=== PATIENT | male | born 1950 | race Two or more races ===

== ENCOUNTER → 2016-09-04 | Outpatient (CLI) | payer OTHER | END | disposition home or self-care (01) | LOC: HKI 13:55 | PROVIDERS: ATTEND Orthopaedic Surgery | DX: M25.561 Pain in right knee (principal); M25.562 Pain in left knee; M17.0 Bilateral primary osteoarthritis of knee | CPT/HCPCS: G0463 ==

== ENCOUNTER → 2016-10-23 | Outpatient (CLI) | payer OTHER ==
--- NOTE | 2016-10-23 12:38 | RADRPT ---
PROCEDURE: Left knee radiographs. CLINICAL INDICATION: Left knee pain. TECHNIQUE: Four views. Weight bearing. Frontal, lateral, oblique, and patellar view. COMPARISON: No prior studies are available for comparison. FINDINGS: There is no fracture or dislocation. The soft tissues are normal. There are degenerative changes with osteophytes arising from all 3 joint compartment margins. There is medial joint compartment narrowing, subarticular sclerosis, and mild deformity. There is no lytic or blastic lesion. There is no radiopaque foreign body. IMPRESSION: 1. Moderate to severe degenerative changes of the left knee. 2. No acute abnormality. RPTAT: QQ .Adebayo Kevin MD, MD Date Time Electronically viewed and signed by .Adebayo Kevin MD, on 10/23/2016 12:37 .R/
--- NOTE | 2016-10-23 12:39 | RADRPT ---
PROCEDURE: Limited x-ray of both lower extremities. CLINICAL INDICATION: Bilateral leg pain. TECHNIQUE: Single frontal view of both lower extremities was obtained from the hips to the calves. COMPARISON: None. FINDINGS: The hips are normal. There are degenerative changes of the both knees with medial joint compartment narrowing, subarticular sclerosis, and mild deformity. IMPRESSION: 1. Moderate to severe degenerative changes of both knees. RPTAT: QQ .Adebayo Kevin MD, MD Date Time Electronically viewed and signed by .Adebayo Kevin MD, MD on 10/23/2016 12:39 .R/
== END | disposition home or self-care (01) ==
LOC: HKI 09:44
PROVIDERS: ATTEND Orthopaedic Surgery
DX: Z01.818 Encounter for other preprocedural examination (principal); M17.0 Bilateral primary osteoarthritis of knee
CPT/HCPCS: 77073

== ENCOUNTER 2016-11-03 11:44 | Inpatient (IN) | payer OTHER ==
[2016-11-03] VITALS (9 sets, daily range): BP systolic 117–162; BP diastolic 72–96; PULSE 80–106; RESP 11–18; Ht 170.2 cm; Wt 99.0 kg
[~2016-11-03] VITALS: Ht 170.2 cm; Wt 99.0 kg
[2016-11-03] MEDS ORDERED: ATOR40TA68 PO (15:40)
[2016-11-03] MEDS ORDERED: CARV3.1260 PO (15:40)
[2016-11-03] MEDS ORDERED: CHOL100062 PO (15:40)
[2016-11-03] MEDS ORDERED: CLOP75TA4 PO (15:40)
[2016-11-03] MEDS ORDERED: FER325 PO (15:40)
[2016-11-03] MEDS ORDERED: LOSA25TA5 PO (15:40)
[2016-11-03] MEDS ORDERED: ASPI-664 PO (15:40)
[2016-11-03] MEDS ORDERED: CYAN100T PO (15:40)
[2016-11-03] MEDS ORDERED: GLIP5TAB13 PO (15:40)
[2016-11-03] MEDS ORDERED: METF500T4 PO (15:40)
[2016-11-03] MEDS ORDERED: HYD25 PO (15:40)
[2016-11-03] MEDS ORDERED: oxyCODONE (CR) 10 MG TAB [oxyCONTIN] X1 DOSE PO ONE (17:00)
[2016-11-03] MEDS ORDERED: VANCOMYCIN 1 GM/NS 250 ML X1 BEFORE INCISION IVPB ONE (17:00)
[2016-11-03] MEDS ORDERED: CELECOXIB 400 MG PO X1 DOSE PO ONE (17:00)
[2016-11-03] MEDS ORDERED: TRANEXAMIC ACID 1,000 MG in SOD CHLORIDE 0.9% 90 ML IV ONE (17:00)
[2016-11-03] MEDS ORDERED: traMADOL 50 MG TAB X 1 DOSE PO ONE (17:00)
[2016-11-03] MEDS ORDERED: PAIN COCKTAIL - VANCOMYCIN IRR ONE ×7 (17:00)
[2016-11-03] MEDS: LACTATED RINGER'S 1,000 ML IV SCH ×2 (17:00→23:47)
[2016-11-03] MEDS ORDERED: PREGABALIN 300 MG PO X1 PO ONE (17:00)
[2016-11-03] MEDS ORDERED: TRANEXAMIC ACID in SOD CHLORIDE 0.9% 100 ML FOR INTRAOP IVPB ONE (19:00)
--- NOTE | 2016-11-03 19:12 | HPN ---
Date/Time of Note Date/Time of Note DATE: 11/03/16 TIME: 19:11 Interval H&P Admission Note Pt. seen H&P reviewed: No system changes No changes from H&P on 10/20/16 by NIDA Stahl MD Nov 03, 2016 19:12
[2016-11-03] MEDS ORDERED: POLYMYXIN B 500000 UNIT INJ ONE (19:14)
[2016-11-03] MEDS ORDERED: VANCOMYCIN 1 GM INJ ONE ×3 (19:14→21:58)
[2016-11-03] MEDS ORDERED: ESMOLOL 10 ML ONE (19:15)
[2016-11-03] MEDS ORDERED: FENTAnyl 50 MCG/ML VIAL ONE (19:47)
[2016-11-03] MEDS ORDERED: MIDAZOLAM 1 MG/ML 2 ML INJ ONE (19:47)
[2016-11-03] MEDS ORDERED: BUPIVACAINE LIPOSOME/PF 266 MG/20 ML VIAL INFIL ONE (20:00)
[2016-11-03] MEDS ORDERED: METOCLOPRAMIDE 10 MG INJ ONE (20:13)
[2016-11-03] MEDS ORDERED: CEFAZOLIN 1 GM INJ ONE (20:13)
[2016-11-03] MEDS ORDERED: LIDOCAINE 2% (SDV) 5 ML INJ ONE (20:13)
[2016-11-03] MEDS ORDERED: ONDANSETRON 4 MG INJ ONE (20:13)
[2016-11-03] MEDS ORDERED: FAMOTIDINE 20 MG INJ ONE (20:13)
[2016-11-03] MEDS ORDERED: PROPOFOL 100 ML ONE (20:13)
[2016-11-03] MEDS ORDERED: EXPAREL NOTE (BUPIVICAINE LIPOSOMAL) XX SCH (20:30)
[2016-11-03] MEDS ORDERED: BACITRACIN 50000 UNITS INJ IRR ONE (21:14)
[2016-11-03] MEDS ORDERED: DIPHENHYDRAMINE 50 MG INJ IV PRN (21:30)
[2016-11-03] MEDS ORDERED: MEPERIDINE 25 MG INJ IV PRN (21:30)
[2016-11-03] MEDS ORDERED: FENTAnyl 50 MCG/ML VIAL IV PRN (21:30)
[2016-11-03] MEDS ORDERED: PROCHLORPERAZINE 10 MG INJ IV PRN (21:30)
[2016-11-03] MEDS ORDERED: ONDANSETRON 4 MG INJ IV PRN ×2 (21:30→23:30)
[2016-11-03] MEDS ORDERED: HYDROmorphONE (0.2 MG/ML) 10ML SYG IV PRN (21:30)
[2016-11-03] MEDS ORDERED: TOBRAMYCIN 1.2 GM POWDER ONE (21:58)
--- NOTE | 2016-11-03 23:13 | OPR ---
Date/Time of Note Date/Time of Note DATE: 11/03/16 TIME: 23:11 Operative Report Free Text/Dictation Dictation # [id number] Preoperative Diagnosis Left Knee OA Postoperative Diagnosis Same Operation/Procedure Performed Left TKA Surgeon: NIDA HERNANDEZ MD mobile unit assistant: ELISA JEWELL PA-C Anesthesia: general, spinal Estimated Blood Loss: 50 - 100 ml's Specimens Bone and soft tissue Grafts/Implants Depuy Attune TKA Complications Non-displaced fracture lateral condyle fixed with two 7.3 cannulated Synthes screws with washers NIDA HERNANDEZ MD Nov 03, 2016 23:12
--- NOTE | 2016-11-03 23:17 | PN ---
Date/Time of Note Date/Time of Note DATE: 11/03/16 TIME: 23:14 Assessment/Plan Lines/Catheters IV Catheter Type (from Nrsg): Peripheral IV Assessment/Plan Assessment/Plan Stable in PACU, s/p left TKA -continue Ancef x 2 days -pain meds as needed -ASA/SCDs -OOB with PT - TDWB -check AM labs -monitor drain -d/c gong in AM XR of the left knee is pending at this time Subjective 24 Hr Interval Summary Stable in PACU. Denies pain. Moving all extremities. Drowsy from anesthesia. Exam/Review of Systems Vital Signs Vitals Vital Signs Date Time Temp Pulse Resp B/P Pulse Ox O2 Delivery O2 Flow Rate FiO2 11/03/16 23:11 98.8 11/03/16 15:41 106 18 117/72 98 Room Air Exam Free Text/Dictation Hemovac: minimal Dressing dry Incision clean, dry, and intact without redness or drainage Thigh soft 5/5 Quadriceps, Tibialis Anterior, EHL, Gastroc, Soleus, Peroneals Normal sensation Palpable DT/PT, CR <2 sec No distal edema ELISA JEWELL PA-C Nov 03, 2016 23:16
[2016-11-03 23:24] LABS: HEMOGLOBIN 10.8 g/dl (14.0-18.0)
[2016-11-03] MEDS ORDERED: CEFAZOLIN 2 GM/50 ML (PMX) 50 ML IVPB ONE (23:28)
[2016-11-03] MEDS ORDERED: ASPIRIN (EC) 325 MG TAB PO ONE ×2 (23:28→23:30)
[2016-11-03] MEDS ORDERED: NACL 0.9% 3 ML SYG IV SCH (23:30)
[2016-11-03] MEDS ORDERED: BISACODYL 10 MG SUPP PR PRN (23:30)
[2016-11-03] MEDS ORDERED: NA PHOSPHATE/BIPHOS 133 ML ENEMA PR PRN (23:30)
[2016-11-03] MEDS ORDERED: DIPHENHYDRAMINE 25 MG CAP PO PRN (23:30)
[2016-11-03] MEDS: CEFAZOLIN 2 GM/50 ML (PMX) 50 ML IVPB SCH (23:47)
[2016-11-04] VITALS (8 sets, daily range): BP systolic 113–167; BP diastolic 58–92; PULSE 74–82; RESP 11–24
[2016-11-04 00:03] LABS: CALCIUM 8.8 mg/dl (8.4-10.2); CREATININE 1.02 mg/dl (0.61-1.24); POTASSIUM 3.5 mmol/L (3.5-5.1)
[2016-11-04 00:42] LABS: ADD UMIC NO; UR ASCORBIC ACID NEGATIVE (NEGATIVE); UR BILIRUBIN (Dip) NEGATIVE (NEGATIVE); UR BLOOD (Dip) NEGATIVE (NEGATIVE); UR CLARITY SLIGHTLY CLOUDY (CLEAR); UR COLOR YELLOW (YELLOW); UR GLUCOSE (Dip) NEGATIVE (NEGATIVE); UR KETONES (Dip) NEGATIVE (NEGATIVE); UR LEUKOCYTE ESTERASE (Dip) NEGATIVE Leu/ul (NEGATIVE); UR NITRITE (Dip) NEGATIVE (NEGATIVE); UR RBC 5 /HPF (0-5); UR SPECIFIC GRAVITY (Dip) 1.017 (1.003-1.030); UR TOTAL PROTEIN (Dip) NEGATIVE (NEGATIVE); UR UROBILINOGEN (Dip) NEGATIVE (NEGATIVE)
[2016-11-04] MEDS: traMADol 50 MG TAB PO SCH ×4 (01:30→17:44)
[2016-11-04] MEDS: DOCUSATE SODIUM 100 MG CAP PO SCH ×3 (01:30→20:37)
--- NOTE | 2016-11-04 01:49 | RADRPT ---
PROCEDURE: X-ray right knee CLINICAL INDICATION: Postoperative for right knee arthroplasty. TECHNIQUE: 2 views of the left knee COMPARISON: None FINDINGS: Left knee arthroplasty with patellar resurfacing; and fracture of the distal femoral metaphysis, wit h screw fixators at the distal femoral metaphysis. No evident hardware complication. Post surgical air and fluid over the knee. No acute fracture otherwise identified. IMPRESSION: 1. Left knee arthroplasty with patellar resurfacing. 2. Fracture of the distal femoral metaphysis, with screw fixators. 3. No hardware complication identified. RPTAT: UU Physician Gina Date Time Electronically viewed and signed by Physician Gina on 11/04/2016 01:49 RS/
[2016-11-04] MEDS ORDERED: TRANEXAMIC ACID IVPB ONE ×2 (02:30→05:30)
[2016-11-04] MEDS ORDERED: SOD CHLORIDE 0.9% IVPB ONE ×2 (02:30→05:30)
[2016-11-04] MEDS: LACTATED RINGER'S 1,000 ML IV SCH ×2 (02:38→07:09)
[2016-11-04] MEDS: HYDROCODONE/APAP (7.5/325) TAB PO PRN ×2 (04:45→20:37)
[2016-11-04 05:37] LABS: HEMATOCRIT 28.7 % (42.0-52.0); HEMOGLOBIN 9.8 g/dl (14.0-18.0)
[2016-11-04] MEDS: PANTOPRAZOLE (EC) 40 MG TAB PO SCH ×2 (05:37→17:45)
[2016-11-04 06:32] LABS: CALCIUM 8.7 mg/dl (8.4-10.2); CREATININE 1.1 mg/dl (0.61-1.24); POTASSIUM 4.2 mmol/L (3.5-5.1)
[2016-11-04 07:57] LABS: ADD UMIC YES; UR ASCORBIC ACID NEGATIVE (NEGATIVE); UR BILIRUBIN (Dip) NEGATIVE (NEGATIVE); UR BLOOD (Dip) 2+ mg/dL (NEGATIVE); UR CLARITY SLIGHTLY CLOUDY (CLEAR); UR COLOR YELLOW (YELLOW); UR GLUCOSE (Dip) 1+ mg/dL (NEGATIVE); UR KETONES (Dip) TRACE mg/dL (NEGATIVE); UR LEUKOCYTE ESTERASE (Dip) NEGATIVE Leu/ul (NEGATIVE); UR NITRITE (Dip) NEGATIVE (NEGATIVE); UR RBC 90 /HPF (0-5); UR SPECIFIC GRAVITY (Dip) 1.028 (1.003-1.030); UR TOTAL PROTEIN (Dip) 1+ mg/dl (NEGATIVE); UR UROBILINOGEN (Dip) NEGATIVE (NEGATIVE)
[2016-11-04] MEDS: CEFAZOLIN 2 GM/50 ML (PMX) 50 ML IVPB SCH ×3 (08:01→23:55)
--- NOTE | 2016-11-04 08:50 | CONS ---
Date/Time of Note Date/Time of Note DATE: 11/04/16 TIME: 08:48 Assessment/Plan Assessment/Plan Additional Assessment/Plan 1. Post op left knee replacement. 2. Known CAD, stable 3. DM, meds rev 4. Labs rev Consultation Date/Type/Reason Admit Date/Time Nov 03, 2016 at 13:48 Initial Consult Date Detailed Summary Respiratory: No shortness of breath Cardiovascular: No chest pain, No lightheadedness Gastrointestinal: no complaints Genitourinary: no complaints Musculoskeletal: bone/joint pain (mild left knee pain) Exam/Review of Systems Vital Signs Vitals Vital Signs Date Time Temp Pulse Resp B/P Pulse Ox O2 Delivery O2 Flow Rate FiO2 11/04/16 07:22 98.7 80 18 113/58 100 11/04/16 01:30 Nasal Cannula 2.0 Intake and Output 11/03/16 11/03/16 11/04/16 15:00 23:00 07:00 Intake Total 2600 ml 519 ml Output Total 520 ml 600 ml Balance 2080 ml -81 ml Exam Neck: No jvd Respiratory: clear to auscultation Cardiovascular: regular rate and rhythm Gastrointestinal: soft Extremities: No edema (and no calf tend) Results Result Diagram: 11/04/16 0505 11/04/16 0505 Results 24 hrs Laboratory Tests Test 11/03/16 15:01 11/03/16 17:27 11/03/16 19:35 11/03/16 23:14 Bedside Glucose 83 94 96 Urine Color YELLOW Urine Clarity SLIGHTLY CLOUDY A Urine pH 5.0 Urine Specific [place] 1.017 Urine Ketones NEGATIVE Urine Nitrite NEGATIVE Urine Bilirubin NEGATIVE Urine Urobilinogen NEGATIVE Urine Leukocyte Esterase NEGATIVE Urine Microscopic RBC 5 Urine Microscopic WBC 1 Urine Hemoglobin NEGATIVE Urine Glucose NEGATIVE Urine Total Protein NEGATIVE Test 11/03/16 23:18 11/03/16 23:20 11/04/16 05:05 11/04/16 06:30 Hemoglobin 10.8 L 9.8 L Hematocrit 32.0 L 28.7 L Sodium Level 132 L 133 L Potassium Level 3.5 4.2 Chloride Level 101 103 Carbon Dioxide Level 26 27 Anion Gap 9 7 L Blood Urea Nitrogen 22 H 24 H Creatinine 1.02 1.10 Glucose Level 98 184 Calcium Level 8.8 8.7 Bedside Glucose 116 Urine Color YELLOW Urine Clarity SLIGHTLY CLOUDY A Urine pH 5.0 Urine Specific [place] 1.028 Urine Ketones TRACE A Urine Nitrite NEGATIVE Urine Bilirubin NEGATIVE Urine Urobilinogen NEGATIVE Urine Leukocyte Esterase NEGATIVE Urine Microscopic RBC 90 H Urine Microscopic WBC 4 Urine Hemoglobin 2+ H Urine Glucose 1+ H Urine Total Protein 1+ H Medications Medications Current Medications Lactated Ringer's (Lr) 1,000 ml @ 100 mls/hr Q10H IV Last administered on 11/04 02:38; Admin Dose 100 MLS/HR; Start 11/03/16 at 17:00 Miscellaneous Information 1 ea NOTE XX ; Start 11/03/16 at 20:30; Stop 11/07/16 at 20:29 Atorvastatin Calcium (Lipitor) 40 mg QHS PO ; Start 11/04/16 at 21:00 Carvedilol (Coreg) 3.125 mg BID PO ; Start 11/04/16 at 09:00 Ferrous Sulfate (Ferrous Sulfate (Ec)) 325 mg DAILY PO ; Start 11/04/16 at 09:00 Hydrochlorothiazide (Hydrochlorothiazide) 25 mg DAILY PO ; Start 11/04/16 at 09: 00 Losartan Potassium 25 mg 25 mg DAILY PO ; Start 11/04/16 at 09:00 Lactated Ringer's (Lr) 1,000 ml @ 125 mls/hr Q8H IV Last administered on 23:47; Admin Dose 125 MLS/HR; Start 11/03/16 at 23:09 Tramadol HCl (Ultram) 50 mg Q6 PO Last administered on 11/04/16 05:38; Admin Dose 50 MG; Start 11/03/16 at 12:00; Stop 11/06/16 at 11:59 Hydromorphone HCl 1 mg 1 mg Q3H PRN IV PAIN LEVEL 8-10; Start 11/03/16 at 23:30 Cefazolin Sodium/ Dextrose (Ancef 2 Gm/50 ml (Pmx)) 50 ml @ 100 mls/hr Q8H IVPB Last administered on 11/04/16 08:01; Admin Dose 100 MLS/HR; Start at 23:30; Stop 11/05/16 at 15:59 Ondansetron HCl (Zofran Inj) 4 mg Q6H PRN IV NAUSEA AND/OR VOMITING; Start 03/12 at 23:30 Bisacodyl (Dulcolax Supp) 10 mg Q12H PRN [place] CONSTIPATION; Start 11/03/16 at 23: 30 Magnesium Hydroxide (Milk Of Mag) 30 ml BID PRN PO CONSTIPATION; Start at 23:30 Sodium Biphosphate/ Sodium Phosphate (Fleet Enema) 133 ml DAILY PRN [place] CONSTIPATION; Start 11/03/16 at 23:30 Docusate Sodium (Colace) 100 mg BID PO ; Start 11/03/16 at 21:00 Diphenhydramine HCl (Benadryl) 25 mg Q6H PRN PO PRURITUS; Start 11/03/16 at 23: 30 Acetaminophen/ Hydrocodone Bitart ([place] (7.5-325)) 1 tab Q4H PRN PO PAIN LEVEL 1-3; Start 11/03/16 at 23:30 Acetaminophen/ Hydrocodone Bitart ([place] (7.5-325)) 2 tab Q4H PRN PO PAIN LEVEL 4-7 Last administered on 11/04/16 04:45; Admin Dose 2 TAB; Start at 23:30 Aspirin (Ecotrin) 325 mg BID PO ; Start 11/04/16 at 09:00 Pantoprazole (Protonix Tab) 40 mg BID@06,18 PO Last administered on 11/04/16 05:37; Admin Dose 40 MG; Start 11/04/16 at 06:00 Pregabalin (Lyrica) 50 mg BID PO ; Start 11/04/16 at 09:00 DEANDRE GRAF MD Nov 04, 2016 08:50
[2016-11-04] MEDS ORDERED: DEXTROSE 50% 50 ML SYRINGE IV PRN ×2 (09:00)
[2016-11-04] MEDS ORDERED: GLUCOSE GEL 15 GRAM TUBE BUCCAL PRN (09:00)
[2016-11-04] MEDS ORDERED: GLUCAGON 1 MG INJ IM PRN (09:00)
[2016-11-04] MEDS ORDERED: GLUCOSE GEL 15 GRAM TUBE PO PRN ×2 (09:00)
--- NOTE | 2016-11-04 09:06 | PN ---
Date/Time of Note Date/Time of Note DATE: 11/04/16 TIME: 09:03 Assessment/Plan Lines/Catheters IV Catheter Type (from Nrsg): Peripheral IV Salas in Place (from Nrsg): Yes Assessment/Plan Assessment/Plan Stable POD #1, s/p left TKA with perioperative femur fracture -continue Ancef until drain removed -pain meds as needed -ASA/SCDs BLE for DVT prophylaxis -OOB with PT - TDWB -check AM labs -monitor drain -d/c planning. Will plan to go to home in [facility] upon discharge Subjective 24 Hr Interval Summary No acute overnight events. Denies significant pain. Did not start PT yesterday. Understands that he will be TDWB for 6 weeks post-operatively. VSS, afebrile. Will plan to go home upon discharge. Exam/Review of Systems Vital Signs Vitals Vital Signs Date Time Temp Pulse Resp B/P Pulse Ox O2 Delivery O2 Flow Rate FiO2 11/04/16 07:22 98.7 80 18 113/58 100 11/04/16 01:30 Nasal Cannula 2.0 Intake and Output 11/03/16 11/03/16 11/04/16 14:59 22:59 06:59 Intake Total 2600 ml 519 ml Output Total 520 ml 600 ml Balance 2080 ml -81 ml Exam Free Text/Dictation Hemovac: 180cc Dressing dry Incision clean, dry, and intact without redness or drainage Thigh soft 5/5 Quadriceps, Tibialis Anterior, EHL, Gastroc, Soleus, Peroneals Normal sensation Palpable DT/PT, CR <2 sec No distal edema Results Result Diagram: 11/04/16 0505 11/04/16 0505 ELISA JEWELL PA-C Nov 04, 2016 09:05
[2016-11-04] MEDS: HYDROCHLOROTHIAZIDE 25 MG TAB PO SCH (09:24)
[2016-11-04] MEDS: FERROUS SULFATE (EC) 325 MG TAB PO SCH (09:27)
[2016-11-04] MEDS: ASPIRIN (EC) 325 MG TAB PO SCH ×2 (09:29→20:37)
[2016-11-04] MEDS: PREGABALIN 50 MG CAP PO SCH ×2 (09:30→20:37)
[2016-11-04] MEDS: LOSARTAN 25 MG TAB PO SCH (10:08)
[2016-11-04] MEDS: SOD CHLORIDE 0.9% 1,000 ML IV SCH ×2 (10:09→22:25)
--- NOTE | 2016-11-04 10:41 | RADRPT ---
PROCEDURE: RF Left Knee CLINICAL INDICATION: Intraoperative localization for left knee replacement procedure. TECHNIQUE: Two x-ray images were obtained intraoperatively during a left knee prosthesis placement procedure. COMPARISON: 11/02/2016 FINDINGS: 2 x-ray images were obtained intraoperatively for localization during a left knee prosthesis placeme nt procedure. The procedure was performed by Dr. Candelaria. Images were obtained for localization intr aoperatively. Surgical hardware is seen to be in place including 2 threaded screws through the dista l left femur with a fracture seen through the lateral cortex. A sponge marker is seen posterior to t he patella on the lateral projection. Total fluoroscopy time was 0.3 minutes. IMPRESSION: Xray images obtained intraoperatively for localization during a left knee prosthesis placement proce durosvaldo. Physician Edel Date Time Electronically viewed and signed by Physician Edel on 11/04/2016 10:41 /
[2016-11-04] MEDS: INSULIN ASPART [NOVOLOG] 3 ML PEN SC SCH ×2 (12:53→17:49)
[2016-11-04] MEDS: metFORMIN 500 MG TAB PO SCH (17:44)
[2016-11-04] MEDS: ATORVASTATIN 40 MG TAB PO SCH (20:37)
--- NOTE | 2016-11-04 23:21 | CONS ---
Date/Time of Note Date/Time of Note DATE: 11/04/16 TIME: 23:18 Assessment/Plan Assessment/Plan Chief Complaint/Hosp Course s/p TKA h/o CAD h/o old [place], ICM DM2 - cont asa - cont statin = cont coreg - pt/ot, pain mgmt per ortho Problems: Consultation Date/Type/Reason Admit Date/Time Nov 03, 2016 at 13:48 Referring Provider: DEANDRE GRAF MD Respiratory: No shortness of breath Cardiovascular: No chest pain, No lightheadedness Gastrointestinal: no complaints Genitourinary: no complaints Musculoskeletal: bone/joint pain (mild left knee pain) Social History Smoking Status: Never smoker Exam/Review of Systems Vital Signs Vitals Vital Signs Date Time Temp Pulse Resp B/P Pulse Ox O2 Delivery O2 Flow Rate FiO2 11/04/16 20:24 98.1 84 18 116/60 95 11/04/16 01:30 Nasal Cannula 2.0 Intake and Output 11/03/16 11/03/16 11/04/16 15:00 23:00 07:00 Intake Total 2600 ml 519 ml Output Total 520 ml 600 ml Balance 2080 ml -81 ml Results Result Diagram: 11/04/16 0505 11/04/16 0505 Results 24 hrs Laboratory Tests Test 11/03/16 23:20 11/04/16 05:05 11/04/16 06:30 11/04/16 08:54 Bedside Glucose 116 187 Hemoglobin 9.8 L Hematocrit 28.7 L Sodium Level 133 L Potassium Level 4.2 Chloride Level 103 Carbon Dioxide Level 27 Anion Gap 7 L Blood Urea Nitrogen 24 H Creatinine 1.10 Glucose Level 184 Calcium Level 8.7 Urine Color YELLOW Urine Clarity SLIGHTLY CLOUDY A Urine pH 5.0 Urine Specific [place] 1.028 Urine Ketones TRACE A Urine Nitrite NEGATIVE Urine Bilirubin NEGATIVE Urine Urobilinogen NEGATIVE Urine Leukocyte Esterase NEGATIVE Urine Microscopic RBC 90 H Urine Microscopic WBC 4 Urine Hemoglobin 2+ H Urine Glucose 1+ H Urine Total Protein 1+ H Test 11/04/16 12:37 11/04/16 17:41 Bedside Glucose 168 193 Medications Medications Current Medications Miscellaneous Information 1 ea NOTE XX ; Start 11/03/16 at 20:30; Stop 11/07/16 at 20:29 Atorvastatin Calcium (Lipitor) 40 mg QHS PO Last administered on 11/04/16t 20: 37; Admin Dose 40 MG; Start 11/04/16 at 21:00 Carvedilol (Coreg) 3.125 mg BID PO Last administered on 11/04/16 20:37; Admin Dose 3.125 MG; Start 11/04/16 at 09:00 Ferrous Sulfate (Ferrous Sulfate (Ec)) 325 mg DAILY PO Last administered on 09:27; Admin Dose 325 MG; Start 11/04/16 at 09:00 Hydrochlorothiazide (Hydrochlorothiazide) 25 mg DAILY PO Last administered on 09:24; Admin Dose 25 MG; Start 11/04/16 at 09:00 Losartan Potassium (Cozaar) 25 mg DAILY PO Last administered on 11/04/16 10:08 ; Admin Dose 25 MG; Start 11/04/16 at 09:00 Tramadol HCl (Ultram) 50 mg Q6 PO Last administered on 11/04/16 17:44; Admin Dose 50 MG; Start 11/03/16 at 12:00; Stop 11/06/16 at 11:59 Hydromorphone HCl 1 mg 1 mg Q3H PRN IV PAIN LEVEL 8-10; Start 11/03/16 at 23:30 Cefazolin Sodium/ Dextrose (Ancef 2 Gm/50 ml (Pmx)) 50 ml @ 100 mls/hr Q8H IVPB Last administered on 11/04/16 15:44; Admin Dose 100 MLS/HR; Start at 23:30; Stop 11/05/16 at 15:59 Ondansetron HCl (Zofran Inj) 4 mg Q6H PRN IV NAUSEA AND/OR VOMITING; Start 03/12 at 23:30 Bisacodyl (Dulcolax Supp) 10 mg Q12H PRN [place] CONSTIPATION; Start 11/03/16 at 23: 30 Magnesium Hydroxide (Milk Of Mag) 30 ml BID PRN PO CONSTIPATION; Start at 23:30 Sodium Biphosphate/ Sodium Phosphate (Fleet Enema) 133 ml DAILY PRN [place] CONSTIPATION; Start 11/03/16 at 23:30 Docusate Sodium (Colace) 100 mg BID PO Last administered on 11/04/16 20:37; Admin Dose 100 MG; Start 11/03/16 at 21:00 Diphenhydramine HCl (Benadryl) 25 mg Q6H PRN PO PRURITUS; Start 11/03/16 at 23: 30 Acetaminophen/ Hydrocodone Bitart ([place] (7.5-325)) 1 tab Q4H PRN PO PAIN LEVEL 1-3 Last administered on 11/04/16 20:37; Admin Dose 1 TAB; Start at 23:30 Acetaminophen/ Hydrocodone Bitart ([place] (7.5-325)) 2 tab Q4H PRN PO PAIN LEVEL 4-7 Last administered on 11/04/16 04:45; Admin Dose 2 TAB; Start at 23:30 Aspirin (Ecotrin) 325 mg BID PO Last administered on 11/04/16 20:37; Admin Dose 325 MG; Start 11/04/16 at 09:00 Pantoprazole (Protonix Tab) 40 mg BID@06,18 PO Last administered on 11/04/16 17:45; Admin Dose 40 MG; Start 11/04/16 at 06:00 Pregabalin 50 mg 50 mg BID PO Last administered on 11/04/16 20:37; Admin Dose 50 MG; Start 11/04/16 at 09:00 Sodium Chloride (NS) 1,000 ml @ 80 mls/hr [id number] IV Last administered on 11/04 22:25; Admin Dose 80 MLS/HR; Start 11/04/16 at 09:00 Miscellaneous Information 1 ea NOTE XX ; Start 11/04/16 at 09:00 Glucose (Glutose) 15 gm Q15M PRN PO DECREASED GLUCOSE; Start 11/04/16 at 09:00 Glucose (Glutose) 22.5 gm Q15M PRN PO DECREASED GLUCOSE; Start 11/04/16 at 09: 00 Dextrose (D50w Syringe) 25 ml Q15M PRN IV DECREASED GLUCOSE; Start 11/04/16 at 09:00 Dextrose (D50w Syringe) 50 ml Q15M PRN IV DECREASED GLUCOSE; Start 11/04/16 at 09:00 Glucagon (Glucagen) 1 mg Q15M PRN IM DECREASED GLUCOSE; Start 11/04/16 at 09:00 Glucose (Glutose) 15 gm Q15M PRN BUCCAL DECREASED GLUCOSE; Start 11/04/16 at 09 :00 KALEY SOSA Nov 04, 2016 23:20
[2016-11-05] MEDS: traMADol 50 MG TAB PO SCH ×4 (00:28→19:53)
[2016-11-05] MEDS: HYDROCODONE/APAP (7.5/325) TAB PO PRN ×3 (03:44→20:35)
[2016-11-05] MEDS: PANTOPRAZOLE (EC) 40 MG TAB PO SCH ×2 (06:09→19:49)
[2016-11-05 06:27] LABS: HEMATOCRIT 28.1 % (42.0-52.0); HEMOGLOBIN 9.3 g/dl (14.0-18.0)
[2016-11-05 06:54] LABS: CALCIUM 8.2 mg/dl (8.4-10.2); CREATININE 0.97 mg/dl (0.61-1.24); POTASSIUM 3.5 mmol/L (3.5-5.1)
[2016-11-05] MEDS: metFORMIN 500 MG TAB PO SCH ×2 (08:23→19:48)
[2016-11-05] MEDS: CEFAZOLIN 2 GM/50 ML (PMX) 50 ML IVPB SCH ×2 (08:24→18:05)
[2016-11-05] MEDS: HYDROmorphONE 1 MG/ML SYG IV PRN ×3 (08:25→17:30)
[2016-11-05] MEDS: HYDROCHLOROTHIAZIDE 25 MG TAB PO SCH (09:00)
[2016-11-05 09:05] VITALS: BP 116/66; RESP 18
[2016-11-05] MEDS: INSULIN ASPART [NOVOLOG] 3 ML PEN SC SCH ×3 (09:17→17:25)
[2016-11-05] MEDS: FERROUS SULFATE (EC) 325 MG TAB PO SCH (09:39)
[2016-11-05] MEDS: DOCUSATE SODIUM 100 MG CAP PO SCH ×2 (09:39→20:35)
[2016-11-05] MEDS: PREGABALIN 50 MG CAP PO SCH ×2 (09:39→20:40)
[2016-11-05] MEDS: ASPIRIN (EC) 325 MG TAB PO SCH ×2 (09:39→20:35)
[2016-11-05] MEDS: SOD CHLORIDE 0.9% 1,000 ML IV SCH ×2 (10:00→11:34)
[2016-11-05] MEDS: LOSARTAN 25 MG TAB PO SCH (10:30)
--- NOTE | 2016-11-05 12:45 | CONS ---
Date/Time of Note Date/Time of Note DATE: 11/05/16 TIME: 12:44 Assessment/Plan Assessment/Plan Additional Assessment/Plan 1. Stable post op left knee replacement. 2. Hyponatremia, stable, will fluid restrict, Lesli ordered 3. CAD, stable Consultation Date/Type/Reason Admit Date/Time Nov 03, 2016 at 13:48 Referring Provider: DEANDRE GRAF MD Detailed Summary Respiratory: No shortness of breath Cardiovascular: No chest pain Gastrointestinal: constipation Genitourinary: no complaints Musculoskeletal: bone/joint pain (mild left knee pain) Exam/Review of Systems Vital Signs Vitals Vital Signs Date Time Temp Pulse Resp B/P Pulse Ox O2 Delivery O2 Flow Rate FiO2 11/05/16 09:05 98.4 79 18 116/66 94 11/05/16 08:00 Nasal Cannula 2.0 Intake and Output 11/04/16 11/04/16 11/05/16 15:00 23:00 07:00 Intake Total 350 ml 940 ml 1340 ml Output Total 160 ml 850 ml Balance 350 ml 780 ml 490 ml Exam Neck: No jvd Respiratory: clear to auscultation Cardiovascular: regular rate and rhythm Gastrointestinal: soft Extremities: No edema (and no calf tend) Results Result Diagram: 11/05/16 0508 11/05/16 0508 Results 24 hrs Laboratory Tests Test 11/04/16 17:41 11/05/16 05:08 11/05/16 08:21 Bedside Glucose 193 156 Hemoglobin 9.3 L Hematocrit 28.1 L Sodium Level 132 L Potassium Level 3.5 Chloride Level 101 Carbon Dioxide Level 29 Anion Gap 6 L Blood Urea Nitrogen 17 Creatinine 0.97 Glucose Level 123 # Calcium Level 8.2 L Medications Medications Current Medications Miscellaneous Information 1 ea NOTE XX ; Start 11/03/16 at 20:30; Stop 11/07/16 at 20:29 Atorvastatin Calcium (Lipitor) 40 mg QHS PO Last administered on 11/04/16 20: 37; Admin Dose 40 MG; Start 11/04/16 at 21:00 Carvedilol (Coreg) 3.125 mg BID PO Last administered on 11/05/16 10:29; Admin Dose 3.125 MG; Start 11/04/16 at 09:00 Ferrous Sulfate (Ferrous Sulfate (Ec)) 325 mg DAILY PO Last administered on 09:39; Admin Dose 325 MG; Start 11/04/16 at 09:00 Hydrochlorothiazide (Hydrochlorothiazide) 25 mg DAILY PO Last administered on 09:24; Admin Dose 25 MG; Start 11/04/16 at 09:00 Losartan Potassium (Cozaar) 25 mg DAILY PO Last administered on 11/05/16 10:30 ; Admin Dose 25 MG; Start 11/04/16 at 09:00 Tramadol HCl (Ultram) 50 mg Q6 PO Last administered on 11/05/16 12:34; Admin Dose 50 MG; Start 11/03/16 at 12:00; Stop 11/06/16 at 11:59 Hydromorphone HCl 1 mg 1 mg Q3H PRN IV PAIN LEVEL 8-10 Last administered on 11:24; Admin Dose 1 MG; Start 11/03/16 at 23:30 Cefazolin Sodium/ Dextrose (Ancef 2 Gm/50 ml (Pmx)) 50 ml @ 100 mls/hr Q8H IVPB Last administered on 11/05/16 08:24; Admin Dose 100 MLS/HR; Start at 23:30; Stop 11/05/16 at 15:59 Ondansetron HCl (Zofran Inj) 4 mg Q6H PRN IV NAUSEA AND/OR VOMITING; Start 03/12 at 23:30 Bisacodyl (Dulcolax Supp) 10 mg Q12H PRN [place] CONSTIPATION; Start 11/03/16 at 23: 30 Magnesium Hydroxide (Milk Of Mag) 30 ml BID PRN PO CONSTIPATION; Start at 23:30 Sodium Biphosphate/ Sodium Phosphate (Fleet Enema) 133 ml DAILY PRN [place] CONSTIPATION; Start 11/03/16 at 23:30 Docusate Sodium (Colace) 100 mg BID PO Last administered on 11/05/16 09:39; Admin Dose 100 MG; Start 11/03/16 at 21:00 Diphenhydramine HCl (Benadryl) 25 mg Q6H PRN PO PRURITUS; Start 11/03/16 at 23: 30 Acetaminophen/ Hydrocodone Bitart ([place] (7.5-325)) 1 tab Q4H PRN PO PAIN LEVEL 1-3 Last administered on 11/05/16 03:44; Admin Dose 1 TAB; Start at 23:30 Acetaminophen/ Hydrocodone Bitart ([place] (7.5-325)) 2 tab Q4H PRN PO PAIN LEVEL 4-7 Last administered on 11/05/16 10:36; Admin Dose 2 TAB; Start at 23:30 Aspirin (Ecotrin) 325 mg BID PO Last administered on 11/05/16 09:39; Admin Dose 325 MG; Start 11/04/16 at 09:00 Pantoprazole (Protonix Tab) 40 mg BID@06,18 PO Last administered on 11/05/16 06:09; Admin Dose 40 MG; Start 11/04/16 at 06:00 Pregabalin 50 mg 50 mg BID PO Last administered on 11/05/16 09:39; Admin Dose 50 MG; Start 11/04/16 at 09:00 Sodium Chloride (NS) 1,000 ml @ 80 mls/hr [id number] IV Last administered on 11/05 11:34; Admin Dose 80 MLS/HR; Start 11/04/16 at 09:00 Miscellaneous Information 1 ea NOTE XX ; Start 11/04/16 at 09:00 Glucose (Glutose) 15 gm Q15M PRN PO DECREASED GLUCOSE; Start 11/04/16 at 09:00 Glucose (Glutose) 22.5 gm Q15M PRN PO DECREASED GLUCOSE; Start 11/04/16 at 09: 00 Dextrose (D50w Syringe) 25 ml Q15M PRN IV DECREASED GLUCOSE; Start 11/04/16 at 09:00 Dextrose (D50w Syringe) 50 ml Q15M PRN IV DECREASED GLUCOSE; Start 11/04/16 at 09:00 Glucagon (Glucagen) 1 mg Q15M PRN IM DECREASED GLUCOSE; Start 11/04/16 at 09:00 Glucose (Glutose) 15 gm Q15M PRN BUCCAL DECREASED GLUCOSE; Start 11/04/16 at 09 :00 DEANDRE GRAF MD Nov 05, 2016 12:45
--- NOTE | 2016-11-05 15:35 | PN ---
Date/Time of Note Date/Time of Note DATE: 11/05/16 TIME: 15:33 Assessment/Plan Lines/Catheters IV Catheter Type (from Nrsg): Peripheral IV Salas in Place (from Nrsg): Yes Assessment/Plan Assessment/Plan POD #2, s/p left TKA -pain meds as needed -ASA/SCDs -OOB with PT -TDWB -check AM labs -dressing changed -ARU eval Subjective 24 Hr Interval Summary No acute overnight events. Having mild pain today. Progressing with PT. VSS, afebrile. Will have ARU evaluate patient given his weightbearing status. Exam/Review of Systems Vital Signs Vitals Vital Signs Date Time Temp Pulse Resp B/P Pulse Ox O2 Delivery O2 Flow Rate FiO2 11/05/16 09:05 98.4 79 18 116/66 94 11/05/16 08:00 Nasal Cannula 2.0 Intake and Output 11/04/16 11/04/16 11/05/16 15:00 23:00 07:00 Intake Total 350 ml 940 ml 1340 ml Output Total 160 ml 850 ml Balance 350 ml 780 ml 490 ml Exam Free Text/Dictation Dressing dry Incision clean, dry, and intact without redness or drainage Thigh soft 5/5 Quadriceps, Tibialis Anterior, EHL, Gastroc, Soleus, Peroneals Normal sensation Palpable DT/PT, CR <2 sec No distal edema Results Result Diagram: 11/05/16 0508 11/05/16 0508 ELISA JEWELL PA-C Nov 05, 2016 15:35
[2016-11-05 20:27] VITALS: BP 136/73; RESP 20
[2016-11-05] MEDS: ATORVASTATIN 40 MG TAB PO SCH (20:35)
--- NOTE | 2016-11-06 01:18 | PN ---
Date/Time of Note Date/Time of Note DATE: 11/05/16 TIME: 08:00 Assessment/Plan VTE Prophylaxis VTE Prophylaxis Intervention: SCD's Assessment/Plan Chief Complaint/Hosp Course s/p TKA h/o CAD h/o old [place], ICM DM2 - cont asa, cont watch h/h - cont statin - cont coreg, losartan, hctz, home dose - pt/ot, pain mgmt per ortho Problems: Subjective 24 Hr Interval Summary Free Text/Dictation patient seen 11/05 am. reports L knee pain. states was out of bed yesterday. no cp/sob/palpitations. Constitutional: no complaints Respiratory: no complaints Cardiovascular: no complaints Gastrointestinal: no complaints Exam/Review of Systems Vital Signs Vitals Vital Signs Date Time Temp Pulse Resp B/P Pulse Ox O2 Delivery O2 Flow Rate FiO2 11/05/16 20:27 98.9 90 20 136/73 100 11/05/16 08:00 Nasal Cannula 2.0 Intake and Output 11/05/16 11/05/16 11/06/16 15:00 23:00 07:00 Intake Total 690 ml 1860 ml Output Total 320 ml 2000 ml Balance 370 ml -140 ml Exam Constitutional: alert, oriented Psych: nl mood/affect, no complaints Head: normocephalic Eyes: EOMI ENMT: mucosa pink and moist Neck: non-tender, supple, No jvd Respiratory: clear to auscultation, normal air movement Cardiovascular: nl pulses, regular rate and rhythm Gastrointestinal: non-tender, soft Musculoskeletal: other (L leg in dressing with drain) Extremities: normal pulses Neurological: LIBERAL ARTS DEAN II-XII intact Results Result Diagram: 11/05/16 0508 11/05/16 0508 Results 24 hrs Laboratory Tests Test 11/05/16 05:08 11/05/16 08:21 11/05/16 12:59 11/05/16 19:47 Hemoglobin 9.3 L Hematocrit 28.1 L Sodium Level 132 L Potassium Level 3.5 Chloride Level 101 Carbon Dioxide Level 29 Anion Gap 6 L Blood Urea Nitrogen 17 Creatinine 0.97 Glucose Level 123 # Calcium Level 8.2 L Bedside Glucose 156 192 101 Medications Medications Current Medications Miscellaneous Information 1 ea NOTE XX ; Start 11/03/16 at 20:30; Stop 11/07/16 at 20:29 Atorvastatin Calcium (Lipitor) 40 mg QHS PO Last administered on 11/05/16 20: 35; Admin Dose 40 MG; Start 11/04/16 at 21:00 Carvedilol (Coreg) 3.125 mg BID PO Last administered on 11/05/16 20:36; Admin Dose 3.125 MG; Start 11/04/16 at 09:00 Ferrous Sulfate (Ferrous Sulfate (Ec)) 325 mg DAILY PO Last administered on 09:39; Admin Dose 325 MG; Start 11/04/16 at 09:00 Hydrochlorothiazide (Hydrochlorothiazide) 25 mg DAILY PO Last administered on 09:24; Admin Dose 25 MG; Start 11/04/16 at 09:00 Losartan Potassium (Cozaar) 25 mg DAILY PO Last administered on 11/05/16 10:30 ; Admin Dose 25 MG; Start 11/04/16 at 09:00 Tramadol HCl (Ultram) 50 mg Q6 PO Last administered on 11/06/16 00:00; Admin Dose 50 MG; Start 11/03/16 at 12:00; Stop 11/06/16 at 11:59 Hydromorphone HCl (Dilaudid) 1 mg Q3H PRN IV PAIN LEVEL 8-10 Last administered on 11/05/16 17:30; Admin Dose 1 MG; Start 11/03/16 at 23:30 Ondansetron HCl (Zofran Inj) 4 mg Q6H PRN IV NAUSEA AND/OR VOMITING; Start 03/12 at 23:30 Bisacodyl (Dulcolax Supp) 10 mg Q12H PRN [place] CONSTIPATION; Start 11/03/16 at 23: 30 Magnesium Hydroxide (Milk Of Mag) 30 ml BID PRN PO CONSTIPATION; Start at 23:30 Sodium Biphosphate/ Sodium Phosphate (Fleet Enema) 133 ml DAILY PRN [place] CONSTIPATION; Start 11/03/16 at 23:30 Docusate Sodium (Colace) 100 mg BID PO Last administered on 11/05/16 20:35; Admin Dose 100 MG; Start 11/03/16 at 21:00 Diphenhydramine HCl (Benadryl) 25 mg Q6H PRN PO PRURITUS; Start 11/03/16 at 23: 30 Acetaminophen/ Hydrocodone Bitart ([place] (7.5-325)) 1 tab Q4H PRN PO PAIN LEVEL 1-3 Last administered on 11/05/16 03:44; Admin Dose 1 TAB; Start at 23:30 Acetaminophen/ Hydrocodone Bitart ([place] (7.5-325)) 2 tab Q4H PRN PO PAIN LEVEL 4-7 Last administered on 11/05/16 20:35; Admin Dose 2 TAB; Start at 23:30 Aspirin (Ecotrin) 325 mg BID PO Last administered on 11/05/16 20:35; Admin Dose 325 MG; Start 11/04/16 at 09:00 Pantoprazole (Protonix Tab) 40 mg BID@06,18 PO Last administered on 11/05/16 19:49; Admin Dose 40 MG; Start 11/04/16 at 06:00 Pregabalin 50 mg 50 mg BID PO Last administered on 11/05/16 20:40; Admin Dose 50 MG; Start 11/04/16 at 09:00 Sodium Chloride (NS) 1,000 ml @ 80 mls/hr [id number] IV Last administered on 11/06 00:00; Admin Dose 80 MLS/HR; Start 11/04/16 at 09:00 Miscellaneous Information 1 ea NOTE XX ; Start 11/04/16 at 09:00 Glucose (Glutose) 15 gm Q15M PRN PO DECREASED GLUCOSE; Start 11/04/16 at 09:00 Glucose (Glutose) 22.5 gm Q15M PRN PO DECREASED GLUCOSE; Start 11/04/16 at 09: 00 Dextrose (D50w Syringe) 25 ml Q15M PRN IV DECREASED GLUCOSE; Start 11/04/16 at 09:00 Dextrose (D50w Syringe) 50 ml Q15M PRN IV DECREASED GLUCOSE; Start 11/04/16 at 09:00 Glucagon (Glucagen) 1 mg Q15M PRN IM DECREASED GLUCOSE; Start 11/04/16 at 09:00 Glucose (Glutose) 15 gm Q15M PRN BUCCAL DECREASED GLUCOSE; Start 11/04/16 at 09 :00 Procedures Procedures knee xray reviewed : s/p L TKA, L femur fxr w KALEY Carey Nov 06, 2016 01:18
[2016-11-06] MEDS: HYDROCODONE/APAP (7.5/325) TAB PO PRN ×4 (03:46→21:08)
[2016-11-06 06:09] LABS: HEMATOCRIT 26.5 % (42.0-52.0)
[2016-11-06 06:25] LABS: CALCIUM 7.9 mg/dl (8.4-10.2); CREATININE 0.95 mg/dl (0.61-1.24); POTASSIUM 3.7 mmol/L (3.5-5.1)
[2016-11-06] MEDS: traMADol 50 MG TAB PO SCH ×2 (06:29)
[2016-11-06] MEDS: MAGNESIUM HYDROXIDE 30ML CUP PO PRN (06:29)
[2016-11-06] MEDS: PANTOPRAZOLE (EC) 40 MG TAB PO SCH ×2 (06:29→17:55)
[2016-11-06] MEDS: INSULIN ASPART [NOVOLOG] 3 ML PEN SC SCH ×3 (07:20→18:07)
[2016-11-06 07:23] VITALS: BP 129/72; RESP 18
--- NOTE | 2016-11-06 07:39 | PDOCDIS ---
Discharge Instructions DIAGNOSIS Discharge Diagnosis s/p left TKA CONDITION Patient Condition: Good HOME CARE INSTRUCTIONS: Diet Instructions: Regular ACTIVITY: Activity Restrictions: Slowly Increase Activity Rest between Activity Avoid heavy lifting Do not operate Machinery Do not operate Power Tool Avoid Heavy Housework Keep Limb Elevated Bathing Restrictions: Shower FOLLOW UP/APPOINTMENTS Follow-up Plan follow up in the office on 11/13/16 OTHER ORDERS: Other Orders: S/P TKA Physical Therapy: Three times per week at home x 2 weeks Daily in Rehab/SNF WB STATUS: TDWB 1. Strengthening exercises for both upper and un-operated lower extremities. 2. Gait training with front wheeled walker 3. Active range of motion exercises to operative knee. 4. When not working on knee range of motion exercises, distal towel roll under operative ankle/distal calf to promote full extension. 5. DO NOT PUT ANYTHING BEHIND OPERATIVE KNEE!!! 6. Quadriceps and hamstring strengthening. 7. May switch to cane in contra lateral hand 6 weeks after surgery. 8. Physical Therapy can open case if nursing is not available. 9. Use Ice Machine as instructed from date of surgery while at rest 3X/day. 10. Patient requires mobile SCDs to reduce risk of developing DVT following TKA. Patient will use the mobile SCDs for 30 days postoperatively. Bathing assistance by home health aide twice weekly if Medicare patient. Occupational Therapy: Evaluation for assistive devices and ADL training. Wound Care: Keep incision dry & covered with Tegaderm until first visit with Dr. Candelaria Anticoagulation Orders: Enteric Coated Aspirin 325 mg po bid x 6 weeks from date of surgery Follow-up:Call for an appointment with Dr. Candelaria in 1 week after discharged from hospital at DME Orders: FWW, 3-in-1 Commode, Polar ice machine, Mobile SCDs ELISA JEWELL PA-C Nov 06, 2016 07:39
[2016-11-06] MEDS ORDERED: PREG50CA PO (07:40)
[2016-11-06] MEDS ORDERED: HYDR-3605 PO (07:40)
[2016-11-06] MEDS ORDERED: TRAM50TA2 PO (07:40)
[2016-11-06] MEDS ORDERED: ASPI325T32 PO (07:40)
[2016-11-06] MEDS ORDERED: PANT40TA4 PO (07:40)
--- NOTE | 2016-11-06 09:02 | CONS ---
Date/Time of Note Date/Time of Note DATE: 11/06/16 TIME: 09:01 Assessment/Plan Assessment/Plan Additional Assessment/Plan 1. Stable post op left knee replacement. 2. Hyponatremia sec to siadh, improved 3. CAD, stable 4. DM, sugars are acceptable Consultation Date/Type/Reason Admit Date/Time Nov 03, 2016 at 13:48 Referring Provider: DEANDRE GRAF MD Detailed Summary Respiratory: No shortness of breath Cardiovascular: No chest pain, No orthopenea Gastrointestinal: no complaints Genitourinary: no complaints Musculoskeletal: bone/joint pain (mild left knee pain) Exam/Review of Systems Vital Signs Vitals Vital Signs Date Time Temp Pulse Resp B/P Pulse Ox O2 Delivery O2 Flow Rate FiO2 11/06/16 07:23 98.7 88 18 129/72 94 11/05/16 08:00 Nasal Cannula 2.0 Intake and Output 11/05/16 11/05/16 11/06/16 15:00 23:00 07:00 Intake Total 690 ml 1860 ml 840 ml Output Total 320 ml 2000 ml 1160 ml Balance 370 ml -140 ml -320 ml Exam Neck: No jvd Respiratory: clear to auscultation Cardiovascular: regular rate and rhythm Gastrointestinal: soft Extremities: No edema (and no calf tend) Results Result Diagram: 11/06/16 0506 11/06/16 0506 Results 24 hrs Laboratory Tests Test 11/05/16 12:59 11/05/16 19:47 11/06/16 00:35 11/06/16 05:06 Bedside Glucose 192 101 Urine Random Sodium 103 H Hemoglobin 9.0 L Hematocrit 26.5 L Sodium Level 131 L Potassium Level 3.7 Chloride Level 104 Carbon Dioxide Level 26 Anion Gap 5 L Blood Urea Nitrogen 13 Creatinine 0.95 Glucose Level 119 Calcium Level 7.9 L Test 11/06/16 08:37 Bedside Glucose 119 Medications Medications Current Medications Miscellaneous Information 1 ea NOTE XX ; Start 11/03/16 at 20:30; Stop 11/07/16 at 20:29 Atorvastatin Calcium (Lipitor) 40 mg QHS PO Last administered on 11/05/16 20: 35; Admin Dose 40 MG; Start 11/04/16 at 21:00 Carvedilol (Coreg) 3.125 mg BID PO Last administered on 11/05/16 20:36; Admin Dose 3.125 MG; Start 11/04/16 at 09:00 Ferrous Sulfate (Ferrous Sulfate (Ec)) 325 mg DAILY PO Last administered on 09:39; Admin Dose 325 MG; Start 11/04/16 at 09:00 Hydrochlorothiazide (Hydrochlorothiazide) 25 mg DAILY PO Last administered on 09:24; Admin Dose 25 MG; Start 11/04/16 at 09:00 Losartan Potassium (Cozaar) 25 mg DAILY PO Last administered on 11/05/16 10:30 ; Admin Dose 25 MG; Start 11/04/16 at 09:00 Tramadol HCl (Ultram) 50 mg Q6 PO Last administered on 11/06/16 06:29; Admin Dose 50 MG; Start 11/03/16 at 12:00; Stop 11/06/16 at 11:59 Hydromorphone HCl (Dilaudid) 1 mg Q3H PRN IV PAIN LEVEL 8-10 Last administered on 11/05/16 17:30; Admin Dose 1 MG; Start 11/03/16 at 23:30 Ondansetron HCl (Zofran Inj) 4 mg Q6H PRN IV NAUSEA AND/OR VOMITING; Start 03/12 at 23:30 Bisacodyl (Dulcolax Supp) 10 mg Q12H PRN [place] CONSTIPATION; Start 11/03/16 at 23: 30 Magnesium Hydroxide (Milk Of Mag) 30 ml BID PRN PO CONSTIPATION Last administered on 11/06/16 06:29; Admin Dose 30 ML; Start 11/03/16 at 23:30 Sodium Biphosphate/ Sodium Phosphate (Fleet Enema) 133 ml DAILY PRN [place] CONSTIPATION; Start 11/03/16 at 23:30 Docusate Sodium (Colace) 100 mg BID PO Last administered on 11/05/16 20:35; Admin Dose 100 MG; Start 11/03/16 at 21:00 Diphenhydramine HCl (Benadryl) 25 mg Q6H PRN PO PRURITUS; Start 11/03/16 at 23: 30 Acetaminophen/ Hydrocodone Bitart ([place] (7.5-325)) 1 tab Q4H PRN PO PAIN LEVEL 1-3 Last administered on 11/05/16 03:44; Admin Dose 1 TAB; Start at 23:30 Acetaminophen/ Hydrocodone Bitart ([place] (7.5-325)) 2 tab Q4H PRN PO PAIN LEVEL 4-7 Last administered on 11/06/16 03:46; Admin Dose 2 TAB; Start at 23:30 Aspirin (Ecotrin) 325 mg BID PO Last administered on 11/05/16 20:35; Admin Dose 325 MG; Start 11/04/16 at 09:00 Pantoprazole (Protonix Tab) 40 mg BID@06,18 PO Last administered on 11/06/16 06:29; Admin Dose 40 MG; Start 11/04/16 at 06:00 Pregabalin 50 mg 50 mg BID PO Last administered on 11/05/16 20:40; Admin Dose 50 MG; Start 11/04/16 at 09:00 Sodium Chloride (NS) 1,000 ml @ 80 mls/hr [id number] IV Last administered on 11/06 00:00; Admin Dose 80 MLS/HR; Start 11/04/16 at 09:00 Miscellaneous Information 1 ea NOTE XX ; Start 11/04/16 at 09:00 Glucose (Glutose) 15 gm Q15M PRN PO DECREASED GLUCOSE; Start 11/04/16 at 09:00 Glucose (Glutose) 22.5 gm Q15M PRN PO DECREASED GLUCOSE; Start 11/04/16 at 09: 00 Dextrose (D50w Syringe) 25 ml Q15M PRN IV DECREASED GLUCOSE; Start 11/04/16 at 09:00 Dextrose (D50w Syringe) 50 ml Q15M PRN IV DECREASED GLUCOSE; Start 11/04/16 at 09:00 Glucagon (Glucagen) 1 mg Q15M PRN IM DECREASED GLUCOSE; Start 11/04/16 at 09:00 Glucose (Glutose) 15 gm Q15M PRN BUCCAL DECREASED GLUCOSE; Start 11/04/16 at 09 :00 DEANDRE GRAF MD Nov 06, 2016 09:02
[2016-11-06] MEDS: DOCUSATE SODIUM 100 MG CAP PO SCH ×2 (09:03→21:02)
[2016-11-06] MEDS: metFORMIN 500 MG TAB PO SCH ×2 (09:03→17:55)
[2016-11-06] MEDS: FERROUS SULFATE (EC) 325 MG TAB PO SCH (09:03)
[2016-11-06] MEDS: ASPIRIN (EC) 325 MG TAB PO SCH ×2 (09:04→21:01)
[2016-11-06] MEDS: LOSARTAN 25 MG TAB PO SCH (09:04)
[2016-11-06] MEDS: HYDROCHLOROTHIAZIDE 25 MG TAB PO SCH (09:04)
[2016-11-06] MEDS: PREGABALIN 50 MG CAP PO SCH ×2 (09:08→21:04)
[2016-11-06] MEDS: SOD CHLORIDE 0.9% 1,000 ML IV SCH ×3 (11:57→23:30)
--- NOTE | 2016-11-06 12:16 | PN ---
Date/Time of Note Date/Time of Note DATE: 11/06/16 TIME: 12:14 Assessment/Plan Lines/Catheters IV Catheter Type (from Nrsg): Peripheral IV Salas in Place (from Nrsg): No Assessment/Plan Assessment/Plan Stable POD #3, s/p left TKA -pain meds as needed -ASA/SCDs -OOB wtih PT - TDWB -dressing changed -transfer to ARU today -follow up in the office in 1 week Subjective 24 Hr Interval Summary No acute overnight events. Denies significant pain. Making progress with PT despite being TDWB. VSS, afebrile. Stable for transfer to ARU today. Exam/Review of Systems Vital Signs Vitals Vital Signs Date Time Temp Pulse Resp B/P Pulse Ox O2 Delivery O2 Flow Rate FiO2 11/06/16 07:23 98.7 88 18 129/72 94 11/05/16 08:00 Nasal Cannula 2.0 Intake and Output 11/05/16 11/05/16 11/06/16 15:00 23:00 07:00 Intake Total 690 ml 1860 ml 840 ml Output Total 320 ml 2000 ml 1160 ml Balance 370 ml -140 ml -320 ml Exam Free Text/Dictation Dressing dry Incision clean, dry, and intact without redness or drainage Thigh soft 5/5 Quadriceps, Tibialis Anterior, EHL, Gastroc, Soleus, Peroneals Normal sensation Palpable DT/PT, CR <2 sec No distal edema Results Result Diagram: 11/06/16 0506 11/06/16 0506 ELISA JEWELL PA-C Nov 06, 2016 12:15
[2016-11-06 20:23] VITALS: BP 120/69; RESP 22
[2016-11-06] MEDS: ATORVASTATIN 40 MG TAB PO SCH (21:01)
[2016-11-07] MEDS: HYDROCODONE/APAP (7.5/325) TAB PO PRN ×3 (00:38→14:23)
[2016-11-07 05:05] LABS: HEMATOCRIT 27.2 % (42.0-52.0); HEMOGLOBIN 8.9 g/dl (14.0-18.0)
[2016-11-07 05:40] LABS: CALCIUM 8.1 mg/dl (8.4-10.2); CREATININE 1.07 mg/dl (0.61-1.24); POTASSIUM 3.9 mmol/L (3.5-5.1)
[2016-11-07] MEDS: MAGNESIUM HYDROXIDE 30ML CUP PO PRN ×2 (06:43→21:15)
[2016-11-07] MEDS: PANTOPRAZOLE (EC) 40 MG TAB PO SCH ×2 (06:43→18:00)
[2016-11-07] MEDS: SOD CHLORIDE 0.9% 1,000 ML IV SCH (06:47)
[2016-11-07] MEDS: INSULIN ASPART [NOVOLOG] 3 ML PEN SC SCH ×3 (07:20→18:11)
[2016-11-07 07:42] VITALS: BP 126/64; RESP 18
[2016-11-07] MEDS: metFORMIN 500 MG TAB PO SCH ×2 (08:44→18:00)
[2016-11-07] MEDS: PREGABALIN 50 MG CAP PO SCH ×2 (08:44→21:07)
[2016-11-07] MEDS: FERROUS SULFATE (EC) 325 MG TAB PO SCH (08:44)
[2016-11-07] MEDS: ASPIRIN (EC) 325 MG TAB PO SCH ×2 (08:44→21:06)
[2016-11-07] MEDS: HYDROCHLOROTHIAZIDE 25 MG TAB PO SCH (08:45)
[2016-11-07] MEDS: LOSARTAN 25 MG TAB PO SCH (08:45)
[2016-11-07] MEDS: DOCUSATE SODIUM 100 MG CAP PO SCH ×2 (08:45→21:06)
--- NOTE | 2016-11-07 09:19 | PN ---
Date/Time of Note Date/Time of Note DATE: 11/07/16 TIME: 09:17 Assessment/Plan Lines/Catheters IV Catheter Type (from Nrsg): Saline Lock Salas in Place (from Nrsg): No Assessment/Plan Assessment/Plan POD # 4. Stable. -[facility] -OOB with PT -TDWB left LE -Pain meds -ASA/SCDs -F/u with me in 1 week Subjective 24 Hr Interval Summary Doing well. Walked with PT yesterday. Set to go to SNF today. Exam/Review of Systems Vital Signs Vitals Vital Signs Date Time Temp Pulse Resp B/P Pulse Ox O2 Delivery O2 Flow Rate FiO2 11/07/16 07:42 98.5 91 18 126/64 91 11/05/16 08:00 Nasal Cannula 2.0 Intake and Output 11/06/16 11/06/16 11/07/16 15:00 23:00 07:00 Intake Total 600 ml 1000 ml 800 ml Output Total 500 ml 1200 ml Balance 600 ml 500 ml -400 ml Exam Free Text/Dictation Dressing dry Incision clean, dry, and intact without redness or drainage 5/5 Tibialis Anterior, EHL, Gastroc Soleus, Peroneals Normal sensation Palpable DP/PT, CR < 2 Sec No distal edema Results Result Diagram: 11/07/1641911/07/16419 NIDA HERNANDEZ MD Nov 07, 2016 09:19
--- NOTE | 2016-11-07 11:38 | CONS ---
Date/Time of Note Date/Time of Note DATE: 11/07/16 TIME: 11:36 Assessment/Plan Assessment/Plan Additional Assessment/Plan 1. Stable post op course so far 2. Hyponatremia, SIADH - resolved; d/c fluid restriction 3. CAD, stable 4. DM, sugars controlled Consultation Date/Type/Reason Admit Date/Time Nov 03, 2016 at 13:48 Initial Consult Date Referring Provider: DEANDRE GRAF MD 24 HR Interval Summary Free Text/Dictation still having some pain, but overall improved. Exam/Review of Systems Vital Signs Vitals Vital Signs Date Time Temp Pulse Resp B/P Pulse Ox O2 Delivery O2 Flow Rate FiO2 11/07/16 07:42 98.5 91 18 126/64 91 11/05/16 08:00 Nasal Cannula 2.0 Intake and Output 11/06/16 11/06/16 11/07/16 15:00 23:00 07:00 Intake Total 600 ml 1000 ml 800 ml Output Total 500 ml 1200 ml Balance 600 ml 500 ml -400 ml Exam Respiratory: clear to auscultation, normal air movement Cardiovascular: nl pulses, regular rate and rhythm Results Result Diagram: 11/07/16 0420 11/07/16 0420 Results 24 hrs Laboratory Tests Test 11/06/16 12:48 11/06/16 17:53 11/07/16 04:20 11/07/16 08:42 Bedside Glucose 148 143 136 Hemoglobin 8.9 L Hematocrit 27.2 L Sodium Level 141 Potassium Level 3.9 Chloride Level 101 Carbon Dioxide Level 30 Anion Gap 14 Blood Urea Nitrogen 16 Creatinine 1.07 Glucose Level 130 Calcium Level 8.1 L Medications Medications Current Medications Miscellaneous Information 1 ea NOTE XX ; Start 11/03/16 at 20:30; Stop 11/07/16 at 20:29 Atorvastatin Calcium (Lipitor) 40 mg QHS PO Last administered on 11/06/16 21: 01; Admin Dose 40 MG; Start 11/04/16 at 21:00 Carvedilol (Coreg) 3.125 mg BID PO Last administered on 11/07/16 08:45; Admin Dose 3.125 MG; Start 11/04/16 at 09:00 Ferrous Sulfate (Ferrous Sulfate (Ec)) 325 mg DAILY PO Last administered on 08:44; Admin Dose 325 MG; Start 11/04/16 at 09:00 Hydrochlorothiazide (Hydrochlorothiazide) 25 mg DAILY PO Last administered on 08:45; Admin Dose 25 MG; Start 11/04/16 at 09:00 Losartan Potassium (Cozaar) 25 mg DAILY PO Last administered on 11/07/16 08:45 ; Admin Dose 25 MG; Start 11/04/16 at 09:00 Hydromorphone HCl (Dilaudid) 1 mg Q3H PRN IV PAIN LEVEL 8-10 Last administered on 11/05/16 17:30; Admin Dose 1 MG; Start 11/03/16 at 23:30 Ondansetron HCl (Zofran Inj) 4 mg Q6H PRN IV NAUSEA AND/OR VOMITING; Start 03/12 at 23:30 Bisacodyl (Dulcolax Supp) 10 mg Q12H PRN [place] CONSTIPATION; Start 11/03/16 at 23: 30 Magnesium Hydroxide (Milk Of Mag) 30 ml BID PRN PO CONSTIPATION Last administered on 11/07/16 06:43; Admin Dose 30 ML; Start 11/03/16 at 23:30 Sodium Biphosphate/ Sodium Phosphate (Fleet Enema) 133 ml DAILY PRN [place] CONSTIPATION; Start 11/03/16 at 23:30 Docusate Sodium (Colace) 100 mg BID PO Last administered on 11/07/16 08:45; Admin Dose 100 MG; Start 11/03/16 at 21:00 Diphenhydramine HCl (Benadryl) 25 mg Q6H PRN PO PRURITUS; Start 11/03/16 at 23: 30 Acetaminophen/ Hydrocodone Bitart ([place] (7.5-325)) 1 tab Q4H PRN PO PAIN LEVEL 1-3 Last administered on 11/07/16 04:26; Admin Dose 1 TAB; Start at 23:30 Acetaminophen/ Hydrocodone Bitart ([place] (7.5-325)) 2 tab Q4H PRN PO PAIN LEVEL 4-7 Last administered on 11/06/16 15:54; Admin Dose 2 TAB; Start at 23:30 Aspirin (Ecotrin) 325 mg BID PO Last administered on 11/07/16 08:44; Admin Dose 325 MG; Start 11/04/16 at 09:00 Pantoprazole (Protonix Tab) 40 mg BID@06,18 PO Last administered on 11/07/16 06:43; Admin Dose 40 MG; Start 11/04/16 at 06:00 Pregabalin 50 mg 50 mg BID PO Last administered on 11/07/16 08:44; Admin Dose 50 MG; Start 11/04/16 at 09:00 Sodium Chloride (NS) 1,000 ml @ 80 mls/hr [id number] IV Last administered on 11/07 06:47; Admin Dose 80 MLS/HR; Start 11/04/16 at 09:00 Miscellaneous Information 1 ea NOTE XX ; Start 11/04/16 at 09:00 Glucose (Glutose) 15 gm Q15M PRN PO DECREASED GLUCOSE; Start 11/04/16 at 09:00 Glucose (Glutose) 22.5 gm Q15M PRN PO DECREASED GLUCOSE; Start 11/04/16 at 09: 00 Dextrose (D50w Syringe) 25 ml Q15M PRN IV DECREASED GLUCOSE; Start 11/04/16 at 09:00 Dextrose (D50w Syringe) 50 ml Q15M PRN IV DECREASED GLUCOSE; Start 11/04/16 at 09:00 Glucagon (Glucagen) 1 mg Q15M PRN IM DECREASED GLUCOSE; Start 11/04/16 at 09:00 Glucose (Glutose) 15 gm Q15M PRN BUCCAL DECREASED GLUCOSE; Start 11/04/16 at 09 :00 CARITO PARK MD Nov 07, 2016 11:38
[2016-11-07] MEDS: HYDROmorphONE 1 MG/ML SYG IV PRN ×2 (16:03→21:15)
[2016-11-07 20:30] VITALS: BP 123/73; PULSE 88; RESP 18
[2016-11-07] MEDS: ATORVASTATIN 40 MG TAB PO SCH (21:06)
[2016-11-08] MEDS: SOD CHLORIDE 0.9% 1,000 ML IV SCH ×2 (00:30→13:00)
[2016-11-08] MEDS: HYDROCODONE/APAP (7.5/325) TAB PO PRN ×5 (01:04→21:35)
[2016-11-08 03:28] VITALS: BP 134/63; PULSE 95; RESP 18
[2016-11-08] MEDS: PANTOPRAZOLE (EC) 40 MG TAB PO SCH ×2 (05:37→18:18)
[2016-11-08 06:03] LABS: HEMATOCRIT 27.4 % (42.0-52.0); HEMOGLOBIN 9.3 g/dl (14.0-18.0)
[2016-11-08 06:25] LABS: CALCIUM 8.4 mg/dl (8.4-10.2); CREATININE 1.03 mg/dl (0.61-1.24); POTASSIUM 4.3 mmol/L (3.5-5.1)
[2016-11-08 08:28] VITALS: BP 127/64; RESP 20
[2016-11-08] MEDS: LOSARTAN 25 MG TAB PO SCH (08:37)
[2016-11-08] MEDS: FERROUS SULFATE (EC) 325 MG TAB PO SCH (08:37)
[2016-11-08] MEDS: PREGABALIN 50 MG CAP PO SCH ×2 (08:37→20:03)
[2016-11-08] MEDS: metFORMIN 500 MG TAB PO SCH ×2 (08:37→18:19)
[2016-11-08] MEDS: ASPIRIN (EC) 325 MG TAB PO SCH ×2 (08:37→20:03)
[2016-11-08] MEDS: DOCUSATE SODIUM 100 MG CAP PO SCH ×2 (08:38→20:03)
[2016-11-08] MEDS: INSULIN ASPART [NOVOLOG] 3 ML PEN SC SCH ×3 (08:39→17:25)
[2016-11-08] MEDS: HYDROCHLOROTHIAZIDE 25 MG TAB PO SCH (08:46)
--- NOTE | 2016-11-08 10:08 | CONS ---
Date/Time of Note Date/Time of Note DATE: 11/08/16 TIME: 10:07 Assessment/Plan Assessment/Plan Additional Assessment/Plan 1. Stable post op course so far 2. Hyponatremia, SIADH - resolved; d/rito fluid restriction 3. CAD, stable 4. DM, sugars controlled Stable for discharge to [facility] from medical standpoint. Consultation Date/Type/Reason Admit Date/Time Nov 03, 2016 at 13:48 Referring Provider: DEANDRE GRAF MD 24 HR Interval Summary Free Text/Dictation Doing well, did better with PT yesterday, anticipating session this morning. Exam/Review of Systems Vital Signs Vitals Vital Signs Date Time Temp Pulse Resp B/P Pulse Ox O2 Delivery O2 Flow Rate FiO2 11/08/16 08:28 98.6 91 20 127/64 91 11/08/16 03:28 Room Air 11/05/16 08:00 2.0 Intake and Output 11/07/16 11/07/16 11/08/16 15:00 23:00 07:00 Intake Total 560 ml 850 ml 700 ml Output Total 1000 ml 1200 ml Balance 560 ml -150 ml -500 ml Exam Respiratory: clear to auscultation, normal air movement Cardiovascular: nl pulses, regular rate and rhythm Results Result Diagram: 11/08/16 0447 11/08/16 0450 Results 24 hrs Laboratory Tests Test 11/07/16 13:01 11/07/16 17:58 11/08/16 04:47 11/08/16 04:50 Bedside Glucose 186 188 Hemoglobin 9.3 L Hematocrit 27.4 L Sodium Level 141 Potassium Level 4.3 Chloride Level 100 Carbon Dioxide Level 30 Anion Gap 15 Blood Urea Nitrogen 15 Creatinine 1.03 Glucose Level 139 Calcium Level 8.4 Test 11/08/16 08:32 Bedside Glucose 157 Medications Medications Current Medications Atorvastatin Calcium (Lipitor) 40 mg QHS PO Last administered on 11/07/16 21: 06; Admin Dose 40 MG; Start 11/04/16 at 21:00 Carvedilol (Coreg) 3.125 mg BID PO Last administered on 11/08/16 08:38; Admin Dose 3.125 MG; Start 11/04/16 at 09:00 Ferrous Sulfate (Ferrous Sulfate (Ec)) 325 mg DAILY PO Last administered on 08:37; Admin Dose 325 MG; Start 11/04/16 at 09:00 Hydrochlorothiazide (Hydrochlorothiazide) 25 mg DAILY PO Last administered on 08:46; Admin Dose 25 MG; Start 11/04/16 at 09:00 Losartan Potassium (Cozaar) 25 mg DAILY PO Last administered on 11/08/16 08:37 ; Admin Dose 25 MG; Start 11/04/16 at 09:00 Hydromorphone HCl (Dilaudid) 1 mg Q3H PRN IV PAIN LEVEL 8-10 Last administered on 11/07/16 21:15; Admin Dose 1 MG; Start 11/03/16 at 23:30 Ondansetron HCl (Zofran Inj) 4 mg Q6H PRN IV NAUSEA AND/OR VOMITING; Start 03/12 at 23:30 Bisacodyl (Dulcolax Supp) 10 mg Q12H PRN [place] CONSTIPATION Last administered on 21:15; Admin Dose 10 MG; Start 11/03/16 at 23:30 Magnesium Hydroxide (Milk Of Mag) 30 ml BID PRN PO CONSTIPATION Last administered on 11/07/16 21:15; Admin Dose 30 ML; Start 11/03/16 at 23:30 Sodium Biphosphate/ Sodium Phosphate (Fleet Enema) 133 ml DAILY PRN [place] CONSTIPATION; Start 11/03/16 at 23:30 Docusate Sodium (Colace) 100 mg BID PO Last administered on 11/08/16 08:38; Admin Dose 100 MG; Start 11/03/16 at 21:00 Diphenhydramine HCl (Benadryl) 25 mg Q6H PRN PO PRURITUS; Start 11/03/16 at 23: 30 Acetaminophen/ Hydrocodone Bitart ([place] (7.5-325)) 1 tab Q4H PRN PO PAIN LEVEL 1-3 Last administered on 11/08/16 08:36; Admin Dose 1 TAB; Start at 23:30 Acetaminophen/ Hydrocodone Bitart ([place] (7.5-325)) 2 tab Q4H PRN PO PAIN LEVEL 4-7 Last administered on 11/07/16 14:23; Admin Dose 2 TAB; Start at 23:30 Aspirin (Ecotrin) 325 mg BID PO Last administered on 11/08/16 08:37; Admin Dose 325 MG; Start 11/04/16 at 09:00 Pantoprazole (Protonix Tab) 40 mg BID@06,18 PO Last administered on 11/08/16 05:37; Admin Dose 40 MG; Start 11/04/16 at 06:00 Pregabalin 50 mg 50 mg BID PO Last administered on 11/08/16 08:37; Admin Dose 50 MG; Start 11/04/16 at 09:00 Sodium Chloride (NS) 1,000 ml @ 80 mls/hr [id number] IV Last administered on 11/07 06:47; Admin Dose 80 MLS/HR; Start 11/04/16 at 09:00 Miscellaneous Information 1 ea NOTE XX ; Start 11/04/16 at 09:00 Glucose (Glutose) 15 gm Q15M PRN PO DECREASED GLUCOSE; Start 11/04/16 at 09:00 Glucose (Glutose) 22.5 gm Q15M PRN PO DECREASED GLUCOSE; Start 11/04/16 at 09: 00 Dextrose (D50w Syringe) 25 ml Q15M PRN IV DECREASED GLUCOSE; Start 11/04/16 at 09:00 Dextrose (D50w Syringe) 50 ml Q15M PRN IV DECREASED GLUCOSE; Start 11/04/16 at 09:00 Glucagon (Glucagen) 1 mg Q15M PRN IM DECREASED GLUCOSE; Start 11/04/16 at 09:00 Glucose (Glutose) 15 gm Q15M PRN BUCCAL DECREASED GLUCOSE; Start 11/04/16 at 09 :00 CARITO PARK MD Nov 08, 2016 10:07
--- NOTE | 2016-11-08 10:37 | PN ---
Date/Time of Note Date/Time of Note DATE: 11/08/16 TIME: 10:35 Assessment/Plan Lines/Catheters IV Catheter Type (from Nrsg): Saline Lock Salas in Place (from Nrsg): No Assessment/Plan Assessment/Plan POD # 5. Stable. -OOB with PT -TDWB right LE -Pain meds -ASA/SCDs -D/C to SNF today or tomorrow when bed available Subjective 24 Hr Interval Summary Comfortable. Waiting for bed availability at [facility]. Exam/Review of Systems Vital Signs Vitals Vital Signs Date Time Temp Pulse Resp B/P Pulse Ox O2 Delivery O2 Flow Rate FiO2 11/08/16 08:28 98.6 91 20 127/64 91 11/08/16 03:28 Room Air 11/05/16 08:00 2.0 Intake and Output 11/07/16 11/07/16 11/08/16 15:00 23:00 07:00 Intake Total 560 ml 850 ml 700 ml Output Total 1000 ml 1200 ml Balance 560 ml -150 ml -500 ml Exam Free Text/Dictation Dressing dry Incision clean, dry, and intact without redness or drainage 5/5 Tibialis Anterior, EHL, Gastroc Soleus, Peroneals Normal sensation Palpable DP/PT, CR < 2 Sec No distal edema Results Result Diagram: 11/08/16 0447 11/08/16 0450 NIDA HERNANDEZ MD Nov 08, 2016 10:36
[2016-11-08] MEDS: HYDROmorphONE 1 MG/ML SYG IV PRN ×2 (11:43→18:18)
[2016-11-08 19:40] VITALS: BP 136/67; RESP 20
[2016-11-08] MEDS: ATORVASTATIN 40 MG TAB PO SCH (20:03)
[2016-11-09] MEDS: HYDROCODONE/APAP (7.5/325) TAB PO PRN ×5 (01:19→18:21)
[2016-11-09] MEDS: SOD CHLORIDE 0.9% 1,000 ML IV SCH ×2 (01:30→14:00)
[2016-11-09] MEDS: PANTOPRAZOLE (EC) 40 MG TAB PO SCH ×2 (05:17→17:44)
[2016-11-09 05:28] LABS: HEMATOCRIT 27.8 % (42.0-52.0); HEMOGLOBIN 9.5 g/dl (14.0-18.0)
[2016-11-09 06:01] LABS: CALCIUM 8.6 mg/dl (8.4-10.2); CREATININE 1.04 mg/dl (0.61-1.24); POTASSIUM 4.1 mmol/L (3.5-5.1)
[2016-11-09] MEDS: INSULIN ASPART [NOVOLOG] 3 ML PEN SC SCH ×3 (07:20→17:41)
[2016-11-09 08:20] VITALS: BP 137/69; RESP 16
--- NOTE | 2016-11-09 08:51 | PN ---
Date/Time of Note Date/Time of Note DATE: 11/09/16 TIME: 08:47 Assessment/Plan Lines/Catheters IV Catheter Type (from Nrsg): Saline Lock Salas in Place (from Nrsg): No Assessment/Plan Assessment/Plan Stable, POD #6 -pain meds as needed -ASA/SCDs -OOB with PT - TDWB -dressing changed -transfer to SNF today -follow up in the office on Wednesday Subjective 24 Hr Interval Summary No acute overnight events. Denies significant pain. Still awaiting final bed placement. VSS, afebrile. Stable for transfer to SNF today. Exam/Review of Systems Vital Signs Vitals Vital Signs Date Time Temp Pulse Resp B/P Pulse Ox O2 Delivery O2 Flow Rate FiO2 11/09/16 08:20 98.4 86 16 137/69 94 11/08/16 03:28 Room Air 11/05/16 08:00 2.0 Intake and Output 11/08/16 11/08/16 11/09/16 15:00 23:00 07:00 Intake Total 800 ml 850 ml Output Total 600 ml 1000 ml Balance 200 ml -150 ml Exam Free Text/Dictation Dressing dry Incision clean, dry, and intact without redness or drainage Thigh soft 5/5 Quadriceps, Tibialis Anterior, EHL, Gastroc, Soleus, Peroneals Normal sensation Palpable DT/PT, CR <2 sec No distal edema Results Result Diagram: 11/09/16 0428 11/09/16 0428 ELISA JEWELL PA-C Nov 09, 2016 08:51
--- NOTE | 2016-11-09 08:59 | CONS ---
Date/Time of Note Date/Time of Note DATE: 11/09/16 TIME: 08:58 Assessment/Plan Assessment/Plan Additional Assessment/Plan 1. Right knee replacement, doing well 2. DM, controlled 3. ASHD, stable 4. Can dc if ok with pt and ot Consultation Date/Type/Reason Admit Date/Time Nov 03, 2016 at 13:48 Referring Provider: DEANDRE GRAF MD Detailed Summary Respiratory: cough, No shortness of breath Cardiovascular: No chest pain Gastrointestinal: no complaints Genitourinary: no complaints Musculoskeletal: bone/joint pain (mild right knee pain) Exam/Review of Systems Vital Signs Vitals Vital Signs Date Time Temp Pulse Resp B/P Pulse Ox O2 Delivery O2 Flow Rate FiO2 11/09/16 08:20 98.4 86 16 137/69 94 11/08/16 03:28 Room Air 11/05/16 08:00 2.0 Intake and Output 11/08/16 11/08/16 11/09/16 15:00 23:00 07:00 Intake Total 800 ml 850 ml Output Total 600 ml 1000 ml Balance 200 ml -150 ml Exam Neck: No jvd Respiratory: clear to auscultation Cardiovascular: regular rate and rhythm Gastrointestinal: soft Extremities: No edema (and no calf tend) Results Result Diagram: 11/09/16 0428 11/09/16 0428 Results 24 hrs Laboratory Tests Test 11/08/16 12:42 11/08/16 17:28 11/09/16 04:28 11/09/16 08:46 Bedside Glucose 121 150 133 Hemoglobin 9.5 L Hematocrit 27.8 L Sodium Level 141 Potassium Level 4.1 Chloride Level 98 Carbon Dioxide Level 29 Anion Gap 18 H Blood Urea Nitrogen 16 Creatinine 1.04 Glucose Level 121 Calcium Level 8.6 Medications Medications Current Medications Atorvastatin Calcium (Lipitor) 40 mg QHS PO Last administered on 11/08/16 20: 03; Admin Dose 40 MG; Start 11/04/16 at 21:00 Carvedilol (Coreg) 3.125 mg BID PO Last administered on 11/08/16 20:04; Admin Dose 3.125 MG; Start 11/04/16 at 09:00 Ferrous Sulfate (Ferrous Sulfate (Ec)) 325 mg DAILY PO Last administered on 08:37; Admin Dose 325 MG; Start 11/04/16 at 09:00 Hydrochlorothiazide (Hydrochlorothiazide) 25 mg DAILY PO Last administered on 08:46; Admin Dose 25 MG; Start 11/04/16 at 09:00 Losartan Potassium (Cozaar) 25 mg DAILY PO Last administered on 11/08/16 08:37 ; Admin Dose 25 MG; Start 11/04/16 at 09:00 Hydromorphone HCl (Dilaudid) 1 mg Q3H PRN IV PAIN LEVEL 8-10 Last administered on 11/08/16 18:18; Admin Dose 1 MG; Start 11/03/16 at 23:30 Ondansetron HCl (Zofran Inj) 4 mg Q6H PRN IV NAUSEA AND/OR VOMITING; Start 03/12 at 23:30 Bisacodyl (Dulcolax Supp) 10 mg Q12H PRN CA CONSTIPATION Last administered on 21:15; Admin Dose 10 MG; Start 11/03/16 at 23:30 Magnesium Hydroxide (Milk Of Mag) 30 ml BID PRN PO CONSTIPATION Last administered on 11/07/16 21:15; Admin Dose 30 ML; Start 11/03/16 at 23:30 Sodium Biphosphate/ Sodium Phosphate (Fleet Enema) 133 ml DAILY PRN CA CONSTIPATION; Start 11/03/16 at 23:30 Docusate Sodium (Colace) 100 mg BID PO Last administered on 11/08/16 20:03; Admin Dose 100 MG; Start 11/03/16 at 21:00 Diphenhydramine HCl (Benadryl) 25 mg Q6H PRN PO PRURITUS; Start 11/03/16 at 23: 30 Acetaminophen/ Hydrocodone Bitart ([place] (7.5-325)) 1 tab Q4H PRN PO PAIN LEVEL 1-3 Last administered on 11/08/16 08:36; Admin Dose 1 TAB; Start at 23:30 Acetaminophen/ Hydrocodone Bitart ([place] (7.5-325)) 2 tab Q4H PRN PO PAIN LEVEL 4-7 Last administered on 11/09/16 05:18; Admin Dose 2 TAB; Start at 23:30 Aspirin (Ecotrin) 325 mg BID PO Last administered on 11/08/16 20:03; Admin Dose 325 MG; Start 11/04/16 at 09:00 Pantoprazole (Protonix Tab) 40 mg BID@06,18 PO Last administered on 11/09/16 05:17; Admin Dose 40 MG; Start 11/04/16 at 06:00 Pregabalin 50 mg 50 mg BID PO Last administered on 11/08/16 20:03; Admin Dose 50 MG; Start 11/04/16 at 09:00 Sodium Chloride (NS) 1,000 ml @ 80 mls/hr [id number] IV Last administered on 11/07 06:47; Admin Dose 80 MLS/HR; Start 11/04/16 at 09:00 Miscellaneous Information 1 ea NOTE XX ; Start 11/04/16 at 09:00 Glucose (Glutose) 15 gm Q15M PRN PO DECREASED GLUCOSE; Start 11/04/16 at 09:00 Glucose (Glutose) 22.5 gm Q15M PRN PO DECREASED GLUCOSE; Start 11/04/16 at 09: 00 Dextrose (D50w Syringe) 25 ml Q15M PRN IV DECREASED GLUCOSE; Start 11/04/16 at 09:00 Dextrose (D50w Syringe) 50 ml Q15M PRN IV DECREASED GLUCOSE; Start 11/04/16 at 09:00 Glucagon (Glucagen) 1 mg Q15M PRN IM DECREASED GLUCOSE; Start 11/04/16 at 09:00 Glucose (Glutose) 15 gm Q15M PRN BUCCAL DECREASED GLUCOSE; Start 11/04/16 at 09 :00 DEANDRE GRAF MD Nov 09, 2016 08:59
[2016-11-09] MEDS: PREGABALIN 50 MG CAP PO SCH (09:10)
[2016-11-09] MEDS: DOCUSATE SODIUM 100 MG CAP PO SCH (09:10)
[2016-11-09] MEDS: ASPIRIN (EC) 325 MG TAB PO SCH (09:11)
[2016-11-09] MEDS: metFORMIN 500 MG TAB PO SCH ×2 (09:11→17:44)
[2016-11-09] MEDS: FERROUS SULFATE (EC) 325 MG TAB PO SCH (09:11)
[2016-11-09] MEDS: HYDROCHLOROTHIAZIDE 25 MG TAB PO SCH (09:12)
[2016-11-09] MEDS: LOSARTAN 25 MG TAB PO SCH (09:12)
[2016-11-09] MEDS ORDERED: MAGNESIUM SULFATE 3 GM in SOD CHLORIDE 0.9% 100 ML IVPB ONE (11:30)
[2016-11-09] MEDS: HYDROmorphONE 1 MG/ML SYG IV PRN ×2 (11:42→15:11)
[2016-11-09] MEDS ORDERED: MAGNESIUM OXIDE 400 MG TAB PO SCH (12:15)
--- NOTE | 2016-11-09 13:36 | DS ---
Date/Time of Note Date/Time of Note DATE: 11/09/16 TIME: 13:28 Discharge Summary Admission/Discharge Info Admit Date/Time Nov 03, 2016 at 13:48 Discharge Date/Time 11/09/16 Discharge Diagnosis s/p left TKA Patient Condition: Good Procedures left total knee arthroplasty Hospital Course This is a 65-year-old male who presented to the clinic initially complaining of left knee pain. X-rays demonstrated advanced osteoarthritis of the left knee, thought he would benefit from a left total knee arthroplasty. On 11/03/2016 the patient was admitted and taken to the operating room. There was an intraoperative lateral femoral condyle fracture when putting in the trials. Two 7.3 cannulated screws were used to reapproximate the fracture line. He was then taken to the recovery room in stable condition. Pain was well-controlled with oral pain medication. He was started on aspirin and SCDs for DVT prophylaxis. He remained hemodynamically stable and neurovascularly intact throughout his hospital stay. He began physical therapy on postoperative day 1 and continues to make satisfactory progress. Ultimately he was deemed stable for transfer on postoperative day 6. Prior to transfer, the incision was inspected and noted to be clean dry and intact. Dressing changes were done prior to the patient going to [facility] nursing [facility]. DISCHARGE INSTRUCTIONS: The patient will be transferred to [facility] nursing [facility] in stable condition. He is to resume a normal diet. He is toe -touch weightbearing in the left lower extremity. He will begin physical therapy at the nursing facility. He will be discharged with a medication noted , and is to resume all his normal home medication. He is to call the office or go to emergency room for any concerns including increased redness, swelling, drainage, fever, or any concerns regarding the operation or site of incision. Home Meds Active Scripts Hydrocodone/Acetaminophen (Hydrocodon-Acetaminoph 7.5-325) 1 Each Tablet, 2 TAB PO Q4H Y for PAIN LEVEL 4-7 for 30 Days, #60 TAB Prov:ELISA JEWELL PA-C 11/06/16 Pantoprazole* (Pantoprazole*) 40 Mg Tablet.dr, 40 MG PO BID@06,18 for 40 Days, # 40 Prov:ELISA JEWELL PA-C 11/06/16 Pregabalin* (Lyrica*) 50 Mg Capsule, 50 MG PO BID for 30 Days, #60 CAP Prov:ELISA JEWELL PA-C 11/06/16 Tramadol HCl (Tramadol HCl) 50 Mg Tablet, 50 MG PO Q6 for 30 Days, #60 TAB Prov:ELISA JEWLEL PA-C 11/06/16 Aspirin (Aspir-Rajwinder) 325 Mg Tablet., 325 MG PO BID for 40 Days, #80 Prov:ELISA JEWELL PA-C 11/06/16 Reported Medications Ferrous Sulfate* (Ferrous Sulfate*) 325 Mg Tabec, 325 MG PO DAILY, TAB 11/03/16 Metformin* (Glucophage*) 500 Mg Tab, 500 MG PO WITH MEALS, #90 TAB 11/03/16 Losartan Potassium* (Losartan Potassium*) 25 Mg Tablet, 25 MG PO DAILY, TAB 11/03/16 Glipizide* (Glipizide*) 5 Mg Tablet, 5 MG PO DAILY, TAB 11/03/16 Cyanocobalamin* (Vitamin B-12*) 100 Mcg Tablet, 100 MCG PO DAILY, TAB 11/03/16 Cholecalciferol* (Vitamin D3*) 1,000 Unit Tablet, 1000 UNIT PO DAILY, TAB 11/03/16 Carvedilol* (Carvedilol*) 3.125 Mg Tablet, 3.125 MG PO BID, #60 TAB 11/03/16 Atorvastatin* (Atorvastatin*) 40 Mg Tablet, 40 MG PO QHS, #30 TAB 11/03/16 Hydrochlorothiazide* (Hydrochlorothiazide*) 25 Mg Tab, 25 MG PO DAILY, #30 TAB 11/03/16 Discontinued Reported Medications Clopidogrel Bisulfate* (Clopidogrel Bisulfate*) 75 Mg Tablet, 75 MG PO DAILY, # 30 TAB 11/03/16 Aspirin* (Aspirin* EC) 81 Mg Tablet., 81 MG PO DAILY, TAB 11/03/16 Follow-up Plan Follow-up in the office on 11/13/2016 Primary Care Provider Eduin Shea MD Pending Labs Laboratory Tests Test 11/08/16 17:28 11/09/16 04:28 11/09/16 08:46 11/09/16 13:03 Bedside Glucose 150mg/dL (70-220) 133mg/dL (70-220) 166mg/dL (70-220) Hemoglobin 9.5g/dl (14.0-18.0) Hematocrit 27.8% (42.0-52.0) Sodium Level 141mmol/L (135-144) Potassium Level 4.1mmol/L (3.5-5.1) Chloride Level 98mmol/L (97-110) Carbon Dioxide Level 29mmol/L (21-31) Anion Gap 18 (8-16) Blood Urea Nitrogen 16mg/dl (7-20) Creatinine 1.04mg/dl (0.61-1.24) Glucose Level 121mg/dl (70-220) Calcium Level 8.6mg/dl (8.4-10.2) ELISA JEWELL PA-C Nov 09, 2016 13:36
[2016-11-09 18:48] VITALS: BP 143/81; PULSE 81; RESP 20
[2016-11-10] MEDS ORDERED: MAGNESIUM OXIDE 400 MG TAB PO SCH (09:00)
--- NOTE | 2016-11-11 04:28 | OPR ---
DATE OF OPERATION: 11/03/2016 PREOPERATIVE DIAGNOSIS: Left knee osteoarthritis. POSTOPERATIVE DIAGNOSIS: Left knee osteoarthritis. OPERATION PERFORMED: Left total knee arthroplasty. SURGEON: Shawn Candelaria MD VEHICLE CARE SPECIALIST: Kristy Zavaleta PA-C. COMPONENTS USED: DePuy Attune size 7 femoral component, size 6 tibial base plate, 5-mm polyethylene insert, 41 patellar button, two 7.3 Synthes screws. ANESTHESIA: Spinal plus general endotracheal intubation plus periarticular injection. ANESTHESIOLOGIST: Grisel Daily MD. TOURNIQUET TIME: 112 minutes. ESTIMATED BLOOD LOSS: 50 mL. INTRAVENOUS FLUIDS: 2800 mL of crystalloid. SPECIMENS: Bone and soft tissue. DRAINS: Hemovac x1. COMPLICATIONS: Nondisplaced fracture lateral condyle. DISPOSITION: The patient tolerated the procedure well and was taken to the recovery room in stable condition. INDICATIONS: The patient is a 65-year-old gentleman who has had progressive worsening pain in the left knee with radiographic evidence of severe osteoarthritis. He has failed nonsurgical means of treatment to control his pain including activity modifications, pain medications, intra-articular injections and ambulatory assist devices. Despite these measures he has had worsening pain. I felt the patient would benefit from a total knee arthroplasty. The risks, benefits, and alternatives of the procedure were explained in detail to the patient. I explained the risks of the surgery to include but not be limited to, bleeding and possible need for blood transfusion; infection; pain; stiffness; neurovascular injury with possible numbness, weakness, and/or paralysis anywhere from the knee down to the toes; fracture; instability; dislocation; wear and/or loosening of the prosthesis and possible need for future revision; blood clots; pulmonary embolism; and anesthetic complications such as heart attack, stroke, GI bleed, pneumonia, and/or . Ample time was allowed for the patient to ask questions, all of which were addressed and answered. The patient understood the risks involved and wished to proceed. Informed consent was signed prior to the procedure. PROCEDURE: The patient's left knee was initialed with a marking pen in the preoperative area to identify the correct operative site. The patient was brought to the operating room and transferred from the [facility] to the operating table where a spinal anesthetic was administered. The patient was then anesthetized and intubated. A Salas catheter was placed. A timeout was performed to confirm that the left leg was the correct operative site. The patient was given 2 g of Ancef within one hour prior to the procedure. A tourniquet was placed on the operative proximal thigh. The operative knee and lower extremity were prepped and draped in the usual sterile fashion. The operative lower extremity was elevated and exsanguinated with an Esmarch tourniquet. The proximal thigh tourniquet was inflated to 300 mmHg. The knee was flexed. A midline incision was made and carried down through the subcutaneous tissue and fat with sharp dissection. Limited medial and lateral flaps were raised. A median parapatellar arthrotomy approach was performed. Synovial fluid was normal in color and consistency. The patella was everted and the knee flexed. There were severe tricompartmental osteoarthritic changes noted. A medial release was performed at the joint line to the midcoronal plane. The ACL and PCL and remnants of the menisci were excised. The stepped drill was used to open up the femoral canal which was irrigated and sucked dry. The intramedullary guide abril was passed up the femur, and the distal cutting block was pinned into place for a 5 degrees valgus cut, taking 10 mm of bone off distally. The oscillating saw was used to make the cut. The tibia was subluxed anteriorly. The tibial cutoff jig was placed over the center of the talus distally and over the junction of the medial and middle third of the tibial tubercle proximally. The guide was pinned into place and the oscillating saw was used to make the cut. The tibia was sized. The extension gap was checked and accommodated a 5-mm spacer block with the knee in full extension. There was no varus or valgus instability. At this point, the femur was sized with the posterior referencing guide. Two holes were drilled in 3 degrees of external rotation. The two holes were in line with the transepicondylar axis, perpendicular to [place]'s line, and in line with the tibial cutoff jig brought up with the knee flexed 90 degrees and tensed with 2 lamina spreaders, suggesting the femoral rotation was correct. The four-in-one cutting block was pinned into place. The anterior and posterior cuts and chamfer cuts were made with the oscillating saw. The flexion gap was checked and accommodated the 5-mm spacer block at 90 degrees. There was no varus or valgus instability, suggesting the flexion and extension gaps were now equal. The central box was cut out on the femur. The tibia was drilled and punched in proper rotation. Trial components were placed into position with a trial insert. The patella was cut from 24 mm down to 13 mm in size. Three holes were drilled and the trial button placed in position. With all the trials now in place, the knee was taken through range of motion and came to full extension as evidenced by the fact that with the foot on my abdomen and axial loading, there was no tendency for the knee to flex. The knee was able to be flexed to 125 degrees with good patellar tracking with no lateral tilt or subluxation. At this point, I was satisfied with the overall range of motion, stability, and patellar tracking. The trials were removed. The real components were opened. Two bags of cement were mixed, one with and one without premixed antibiotic. The knee was irrigated with antibiotic saline and sucked dry. Once the cement was in a doughy stage, the real components were cemented into place. The knee was held in full extension, and the patellar component was held with a patellar clamp. All excess cement was removed with curettes. As the cement was hardening, the synovial/capsular layer was infiltrated with a mixture of 150 mg of 0.5% Bupivacaine, 8 mg of Duramorph, 300 mcg of epinephrine, 30 mg of Toradol, 100 mcg of clonidine, 750 mg of cefuroxime and 86 mL of normal saline, followed by an injection of 266 mg of liposomal Bupivacaine. After the trials were removed there was noted to be a nondisplaced fracture of the lateral condyle. I fixed this with two cannulated 7.3 partially threaded screws with washers getting excellent bites. C-arm imaging confirmed that the fracture was well lined and the screws were in good position on the AP and lateral views. A Hemovac drain was placed in the deep portion of the wound and brought out the anterolateral thigh. Once the cement was completely hardened, the trial liner was removed, and the real insert was opened. The tourniquet was let down, and there was good hemostasis. The knee was then irrigated with a mixture of betadine/saline and then antibiotic saline with pulsatile lavage. The real insert was impacted into the tibia and reduced onto to the femur. The arthrotomy was closed with a few interrupted #1 Ethibond in a [id number] fashion, and then closed in a watertight fashion with a running #2 Stratafix suture. Knee flexion was checked against gravity and came to 125 degrees. The subcutaneous layer was irrigated and closed with 2-0 Statafix, and then 3-0 Vicryl and then sonja on the skin. The wound was covered with an occlusive dressing, and secured with cast padding and a bias dressing. The drain was secured with 3-0 nylon. The sponge and needle counts were correct at the end of the case. The patient was then awakened, extubated, and taken to the recovery room in stable condition. Dictated By: Shawn Candelaria MD /yogi/stacia /Document#: [id number]
== END 2016-11-09 20:10 | DRG 470 ==
LOC: REC 13:48 → MS1 11-04 01:39
PROVIDERS: ADMIT Orthopaedic Surgery; ATTEND Orthopaedic Surgery
PROC: 0QHC04Z Insertion of Internal Fixation Device into Left Lower Femur, Open Approach (ICD-10-PCS; 2016-11-03)
PROC: 0SRD0J9 Replacement of Left Knee Joint with Synthetic Substitute, Cemented, Open Approach (ICD-10-PCS; principal; 2016-11-03 19:30)
DX: M17.12 Unilateral primary osteoarthritis, left knee (principal); E87.1 Hypo-osmolality and hyponatremia; M84.452A Pathological fracture, left femur, initial encounter for fracture; I10 Essential (primary) hypertension; I25.10 Atherosclerotic heart disease of native coronary artery without angina pectoris; E11.9 Type 2 diabetes mellitus without complications; Z79.4 Long term (current) use of insulin; Z95.5 Presence of coronary angioplasty implant and graft; I25.2 Old myocardial infarction; Z79.82 Long term (current) use of aspirin
CPT/HCPCS: 73560; 80048; 81001; 81003; 82962; 83735; 84100; 84300; 85014; 85018; 86850; 86900; 86901; 86920; 87081; 87086; 97003; 97110; 97116; 97162; 97166; 97530; 97535; C1713; C1776; C9290; J0171; J0690; J0735; J1170; J1815; J1885; J2250; J2274; J2405; J2765; J3010; J3370; J3475; J7030; J7120

== ENCOUNTER → 2016-11-13 | Outpatient (CLI) | payer OTHER ==
[~2016-11-13] MED LIST: ASPI325T32 PO; ATOR40TA68 PO; CARV3.1260 PO; CHOL100062 PO; CYAN100T PO; FER325 PO; GLIP5TAB13 PO; HYD25 PO; HYDR-3605 PO; LOSA25TA5 PO; METF500T4 PO; PANT40TA4 PO; PREG50CA PO; TRAM50TA2 PO
--- NOTE | 2016-11-13 14:37 | PN ---
Date/Time of Note Date/Time of Note DATE: 11/13/16 TIME: 14:32 Assessment/Plan VTE Prophylaxis VTE Prophylaxis Intervention: ambulation, other Assessment/Plan Assessment/Plan ASSESSMENT: 10 days status post left total knee arthroplasty PLAN: The sonja were removed today, and Steri-Strips were applied. He is to continue aspirin 325 mg twice daily for DVT prophylaxis. Refills of his [place] 7.5/325 mg and tramadol 50 mg quantity #60 each, refill today. A prescription for Lyrica 50 mg was also prescribed today. He is to continue physical therapy and continue to be toe-touch weightbearing for a period of 6 weeks postoperatively. He is stable for discharge home today and will begin home health physical therapy in [facility] where he plans on staying. If he develops any concerns, he will call the office, otherwise we will see him back in 4 weeks for a repeat evaluation. Subjective 24 Hr Interval Summary Free Text/Dictation The patient presents today for his first postoperative evaluation on his left knee. He is 10 days status post left total knee arthroplasty. [facility] and is doing well overall. He does however desire to leave the place today and is requesting to be discharged. He denies any fevers or chills. He is taking [place] and tramadol for pain. Additionally he is taking aspirin 325 mg twice daily for DVT prophylaxis. He has been using a front wheel walker and continues to be toe-touch weightbearing. He presents today for his first postoperative evaluation. Exam/Review of Systems Exam On exam today, he is alert and oriented 4, and in no acute distress. He is ambulating with a front wheel walker. Exam of the incision demonstrates it to be clean, dry, and intact. There is some mild ecchymosis along the posterior aspect of his knee. [place] are in place along the incision. Range of motion is 3-70. Varus and valgus forces are stable. Homans sign is negative. Compartments are soft. He is neurovascularly intact distally. IMAGING: X-rays of the left knee done at an outside facility demonstrate postoperative changes which include a left total knee arthroplasty. The components appear well fixed. There are 2 cannulated screws along the lateral femoral condyle which appear to be in an anatomic in adequate location. There is still a slight residual fracture line which is well fixed with the screws. No other acute fractures or dislocations identified. ELISA JEWELL PA-C Nov 13, 2016 14:37
== END | disposition home or self-care (01) ==
LOC: HKI 13:16
PROVIDERS: ATTEND Orthopaedic Surgery
DX: Z47.1 Aftercare following joint replacement surgery (principal); Z96.652 Presence of left artificial knee joint

== ENCOUNTER → 2016-12-11 | Outpatient (CLI) | payer MEDICARE, BC ==
[~2016-12-11] MED LIST changes: +ASPI-664 PO; +CLOP75TA4 PO
--- NOTE | 2016-12-11 15:48 | RADRPT ---
PROCEDURE: X-RAY LEFT KNEE CLINICAL INDICATION: Total knee replacement. Status post surgery. Follow-up. TECHNIQUE: Three views of the left knee are available for review. COMPARISON: 10/23/2016. FINDINGS: Since the prior examination, the patient has undergone a total knee replacement. There are also 2 t ransverse screws within the distal femoral metaphysis. The knee replacement is in good position and alignment without evidence of migration, loosening, infection, or fracture. No bone destructive or erosive changes are seen. No acute fracture is identified. There is a small effusion. IMPRESSION: 1. Appropriate postoperative appearance of left knee replacement. 2. No acute change and no evidence for fracture. RPTAT: XX .Juan Ferris MD, MD Date Time Electronically viewed and signed by .Juan Ferris MD, on 12/11/2016 15:47 .T/
== END | disposition home or self-care (01) ==
LOC: HKI 10:38
PROVIDERS: ATTEND Orthopaedic Surgery
DX: M17.12 Unilateral primary osteoarthritis, left knee (principal); Z09 Encounter for follow-up examination after completed treatment for conditions other than malignant neoplasm; Z96.652 Presence of left artificial knee joint; E11.9 Type 2 diabetes mellitus without complications; E78.5 Hyperlipidemia, unspecified; Z98.61 Coronary angioplasty status; Z88.0 Allergy status to penicillin